=== PATIENT | female | born 1960 | race Caucasian/White ===

== ENCOUNTER 2017-05-16 10:31 | Emergency (ER) | payer OTHER ==
[~2017-05-16] VITALS: Ht 157.5 cm; Wt 55.5 kg
[~2017-05-16 10:31] MED LIST: CALC500T12 PO; FERR325C PO; HYDR-3498 PO; MELO-110 PO; NAPR-688 PO; ONDA4TAB35 PO
[2017-05-16 10:37] VITALS: Ht 157.5 cm; Wt 55.5 kg
[2017-05-16 11:21] LABS: URINE BLOOD (Dip) POC 3+ (NEGATIVE)
[2017-05-16] MEDS ORDERED: SOD CHLORIDE 0.9% 500 ML IV STA (11:46)
[2017-05-16] MEDS ORDERED: CHOL100062 PO (12:02)
[2017-05-16 12:19] LABS: ADD SCAN DIFF NO
[2017-05-16 12:24] LABS: BASOPHILS % 0.3 % (0.0-2.0); EOSINOPHILS # 0.2 10^3/ul (0.0-0.5); EOSINOPHILS % 2.1 % (0.0-7.0); HEMOGLOBIN 7.5 g/dl (12.0-16.0); LYMPHOCYTES # 1.3 10^3/ul (0.8-2.9); MEAN CORPUSCULAR HEMOGLOBIN 29.4 pg (29.0-33.0); MEAN CORPUSCULAR HGB CONC 31.3 g/dl (32.0-37.0); MEAN CORPUSCULAR VOLUME 94.1 fl (82.0-101.0); MEAN PLATELET VOLUME 9.7 fl (7.4-10.4); MONOCYTE # 0.8 10^3/ul (0.3-0.9); MONOCYTES % 11.7 % (0.0-11.0); NEUTROPHIL # 4.8 10^3/ul (1.6-7.5); NEUTROPHILS % 67.6 % (39.0-77.0); PLATELET COUNT 461 10^3/UL (140-415); RED BLOOD COUNT 2.55 10^6/ul (4.20-5.40); RED CELL DISTRIBUTION WIDTH 14.6 % (11.5-14.5); WHITE BLOOD COUNT 7.1 10^3/ul (4.8-10.8)
[2017-05-16 12:39] LABS: ALBUMIN 4.1 g/dl (3.3-4.9); ALBUMIN/GLOBULIN RATIO 1.64; CALCIUM 8.5 mg/dl (8.4-10.2); CREATININE 1.18 mg/dl (0.44-1.00); POTASSIUM 3.9 mmol/L (3.5-5.1); TOTAL PROTEIN 6.6 g/dl (6.1-8.1)
--- NOTE | 2017-05-16 12:54 | RADRPT ---
PROCEDURE: CT Abdomen and Pelvis without contrast CLINICAL INDICATION: Abdominal pain TECHNIQUE: Transaxial images were obtained through the abdomen and pelvis on a multi-slice scanner without the intravenous contrast administration. No oral contrast had previously been given. Sagit kristopher and coronal re-formations were subsequently reconstructed. One or more of the following dose reduction techniques were used: - Automated exposure control. - Adjustment of the mA and/or kV according to patient size. - Use of iterative reconstruction technique. Radiation dose: CTDIvol = 5.62 mGy; DLP = 296.28 mGy-cm. COMPARISON: 04/18/2016 FINDINGS: Lung bases: The visualized lung bases appear unremarkable. There is a small fat containing Bochdalek hernia on the left, unchanged. Liver: The liver is normal in size. A 2.8 x 1.8 cm cyst is seen within the anterior left lobe. No o ther focal lesion is evident. Gallbladder: The wall is not thickened. No radiopaque stones are identified. Bile ducts: The intra and extrahepatic bile ducts are normal in caliber. Pancreas: Appears normal with no mass or inflammation evident. Spleen: Normal in size with no focal lesion. Adrenals: Normal with no mass identified. Kidneys, ureters and bladder: A 7 mm angiomyolipoma is seen within the superior pole of the right ki dney. There is no right-sided hydronephrosis and the right ureter appears normal. The left kidney appears unremarkable except for mild to moderate hydronephrosis. The right ureter is dilated to the point of 5 mm distal left ureterolith located approximate 2-3 cm superior to the left ureterovesicu lar junction. The bladder is poorly distended. Reproductive organs: A 1.5 cm exophytic fibroid is again seen extend anteriorly off the uterine fund us. Phleboliths are seen in the right pelvis. Stomach and bowel: There is a small hiatal hernia. Substantial stool is again seen in the right col on and there is less stranding in the adjacent fat adjacent to the stool distended cecum. There is no longer distension of distal small bowel. Appendix: The vermiform appendix is not discretely identified.. Peritoneum: No free intraperitoneal fluid or air is identified. Aorta: There is atherosclerotic vascular calcification but no abdominal aortic aneurysm is evident. IVC: Unremarkable. Lymph nodes: No pathologically enlarged nodes are identified. Osseous structures: There is an end-stage degenerative left hip. Mild degenerative changes seen abo ut the right hip and within the spine. IMPRESSION: 1. Since the previous CT of 04/18/2016, the left-sided nephrolith has migrated into the distal left ureter approximately 2-3 cm superior to the UVJ resulting in mild to moderate left hydronephrosis/h ydroureter. 2. The right kidney and ureter are unremarkable except for a 7 mm angiomyolipoma located within the superior pole right kidney, unchanged. 3. Small hiatal hernia, unchanged. Abundant stool is again seen in the right colon and there is le ss stranding in the fat adjacent to the stool distended cecum. The distal small bowel is no longer distended. 4. There is no longer free intraperitoneal fluid and no free air is evident. 5. A 2.8 x 1.8 cm cyst is again seen within the left lobe of the liver. 6. A 1.5 cm uterine fibroid is again seen extending exophytically off the midline uterine fundus an teriorly. 7. A small fat containing Bochdalek hernia is again seen on the left. Physician mAee Date Time Electronically viewed and signed by Physician Amee on 05/16/2017 12:53 /
[2017-05-16] MEDS ORDERED: IBUP800T25 PO (13:29)
[2017-05-16] MEDS ORDERED: ONDA4TAB14 PO (13:29)
[2017-05-16] MEDS ORDERED: CEPH-443 PO (13:29)
[2017-05-16] MEDS ORDERED: HYDR-902 PO (13:29)
[2017-05-16] MEDS ORDERED: TAMS-14 PO (13:29)
--- NOTE | 2017-05-16 13:37 | ERD ---
ER Documentation Chief Complaint Date/Time DATE: 05/16/17 TIME: 13:33 Chief Complaint Complains of abdominal x 2 days HPI 57-year-old female. Patient presents with 2 days of abdominal pain that seems to be suprapubic associated with mild dysuria and frequency. No back pain or flank pain no fevers or chills no chest pain or shortness of breath, no abdominal surgical history. Symptoms are moderate. ROS All systems reviewed and are negative except as per history of present illness. Medications Home Meds Active Scripts Cephalexin* (Keflex*) 500 Mg Capsule, 500 MG PO BID for 7 Days, CAP Prov:BALJINDER ACKERMAN MD 05/16/17 Ibuprofen* (Motrin*) 800 Mg Tab, 800 MG PO Q6H Y for PAIN AND OR ELEVATED TEMP, #30 TAB Prov:BALJINDER ACKERMAN MD 05/16/17 Ondansetron (Ondansetron Odt) 4 Mg Tab.rapdis, 4 MG PO Q6H Y for NAUSEA AND/OR VOMITING, #10 TAB Prov:BALJINDER ACKERMAN MD 05/16/17 Hydrocodone/Acetaminophen (Eddy 10-325 Tablet) 1 Each Tablet, 1 TAB PO Q6H Y for PAIN, #7 TAB Prov:BALJINDER ACKERMAN MD 05/16/17 Tamsulosin Hcl* (Flomax*) 0.4 Mg Cap.er.24h, 0.4 MG PO QPM, #14 CAP Prov:BALJINDER ACKERMAN MD 05/16/17 Reported Medications Cholecalciferol* (Vitamin D3*) 1,000 Unit Tablet, 1000 UNIT PO DAILY, TAB 05/16/17 Calcium Carbonate* (Oysco-500*) 1 Tab Tablet, 1 TAB PO DAILY, TAB 04/18/16 Ferrous Sulfate (Iron) 325 Mg Capsr, 325 MG PO DAILY 04/18/16 Meloxicam* (Mobic*) 15 Mg Tablet, 15 MG PO DAILY, #30 TAB 04/18/16 Discontinued Scripts Ondansetron Hcl* (Zofran* ODT) 4 mg -ODT Tab.disper, 4 MG PO Q6 Y for NAUSEA AND /OR VOMITING, #10 TAB Prov:VASQUEZ FARLEY DO 04/18/16 Naproxen* (Naproxen*) 500 Mg Tablet, 500 MG PO BID Y for PAIN, #20 TAB Prov:VASQUEZ FARLEY DO 04/18/16 Hydrocodone Bit-Acetaminophen* (Eddy*) 5-325 Mg Tab, 1 TAB PO Q6 Y for PAIN, # 12 TAB Prov:VASQUEZ FALREY DO 04/18/16 Allergies Allergies: Coded Allergies: No Known Allergies (Verified Allergy, Unknown, 05/16/17) PMhx/Soc History of Surgery: Yes ( X1, APPY) Anesthesia Reaction: No Hx Neurological Disorder: No Hx Respiratory Disorders: No Hx Cardiac Disorders: No Hx Psychiatric Problems: No Hx Miscellaneous Medical Probl: Yes (OSTEOARTHRITIS) Hx Alcohol Use: No Hx Substance Use: No Hx Tobacco Use: No Smoking Status: Never smoker FmHx Family History: No diabetes Physical Exam Vitals Vital Signs Date Time Temp Pulse Resp B/P Pulse Ox O2 Delivery O2 Flow Rate FiO2 05/16/17 13:28 98.0 81 20 101/58 98 05/16/17 10:37 97.1 77 20 96/57 97 Physical Exam General: Well developed, well nourished, no acute distress Head: Normocephalic, atraumatic. Eyes: Pupils equally reactive, EOM intact ENT: Moist mucous membranes Neck: Supple, no lymphadenopathy Respiratory: Lungs clear bilaterally, no distress Cardiovascular: RRR, no murmurs, rubs, or gallops Abdominal: Soft, mild suprapubic tenderness without rebound or guarding , non- distended, no peritoneal signs, no CVAT : Deferred MSK: No edema, no unilateral swelling, 5/5 strength Neurologic: Alert and oriented, moving all extremities, normal speech, no focal weakness, no cerebellar signs Skin: No rash Psych: Normal mood Result Diagram: 05/16/17 1045 05/16/17 1045 Results 24 hrs Laboratory Tests Test 05/16/17 10:45 05/16/17 11:24 White Blood Count 7.110^3/ul Red Blood Count 2.5510^6/ul Hemoglobin 7.5g/dl Hematocrit 24.0% Mean Corpuscular Volume 94.1fl Mean Corpuscular Hemoglobin 29.4pg Mean Corpuscular Hemoglobin Concent 31.3g/dl Red Cell Distribution Width 14.6% Platelet Count 90309^3/UL Mean Platelet Volume 9.7fl Neutrophils % 67.6% Lymphocytes % 18.0% Monocytes % 11.7% Eosinophils % 2.1% Basophils % 0.3% Nucleated Red Blood Cells % 0.0/100WBC Neutrophils # 4.810^3/ul Lymphocytes # 1.310^3/ul Monocytes # 0.810^3/ul Eosinophils # 0.210^3/ul Basophils # 0.010^3/ul Nucleated Red Blood Cells # 0.010^3/ul Sodium Level 140mmol/L Potassium Level 3.9mmol/L Chloride Level 107mmol/L Carbon Dioxide Level 25mmol/L Anion Gap 12 Blood Urea Nitrogen 20mg/dl Creatinine 1.18mg/dl Glucose Level 108mg/dl Calcium Level 8.5mg/dl Total Bilirubin 0.0mg/dl Direct Bilirubin 0.00mg/dl Indirect Bilirubin 0.0mg/dl Aspartate Amino Transf (AST/SGOT) 20IU/L Alanine Aminotransferase (ALT/SGPT) 32IU/L Alkaline Phosphatase 62IU/L Total Protein 6.6g/dl Albumin 4.1g/dl Globulin 2.50g/dl Albumin/Globulin Ratio 1.64 Lipase 90U/L Bedside Urine pH (LAB) 5.5 Bedside Urine Protein (LAB) 1+ Bedside Urine Glucose (UA) Negative Bedside Urine Ketones (LAB) Negative Bedside Urine Blood 3+ Bedside Urine Nitrite (LAB) Negative Bedside Urine Leukocyte Esterase (L Negative Current Medications Medications (Trade) Dose Ordered Sig/Magaly Route PRN Reason Start Time Stop Time Status Last Admin Dose Admin Sodium Chloride (NS) 500 ml @ 500 mls/hr Q1H STAT IV 05/16/17 11:46 05/16/17 12:45 DC 05/16/17 12:55 Procedures/MDM EKG, MONITORS, & DIAGNOSTIC IMAGING: CT abdomen and pelvis IMPRESSION: 1. Since the previous CT of 04/18/2016, the left-sided nephrolith has migrated into the distal left ureter approximately 2-3 cm superior to the UVJ resulting in mild to moderate left hydronephrosis/hydroureter. 2. The right kidney and ureter are unremarkable except for a 7 mm angiomyolipoma located within the superior pole right kidney, unchanged. 3. Small hiatal hernia, unchanged. Abundant stool is again seen in the right colon and there is less stranding in the fat adjacent to the stool distended cecum. The distal small bowel is no longer distended. 4. There is no longer free intraperitoneal fluid and no free air is evident. 5. A 2.8 x 1.8 cm cyst is again seen within the left lobe of the liver. 6. A 1.5 cm uterine fibroid is again seen extending exophytically off the midline uterine fundus anteriorly. 7. A small fat containing Bochdalek hernia is again seen on the left. LAB INTERPRETATION: Anemia, no UTI MEDICAL DECISION MAKING: The patient presents with abdominal pain, she does have some mild dysuria. Consider possible UTI however urine dip does not confirm this. This raises a concern for possible acute intra-abdominal process prompting CT imaging of the abdomen and pelvis. Otherwise benign exam. ER COURSE: Anemia that does not require transfusion. She does have a history of anemia. The patient does have evidence of a left UVJ stone. This is nonobstructing and the patient has controlled pain. No evidence of infection but the patient does describe some dysuria therefore Keflex will be initiated. I do not believe inpatient hospitalization is necessary. A trial of passage would be reasonable. The patient will be started on Flomax, Motrin, pain control, Keflex. Outpatient referral to urology is recommended. I kept the patient and/or family informed of laboratory and diagnostic imaging results throughout the emergency room course. DISPOSITION PLAN: We discussed follow up with the patient's primary care doctor within 24 to 48 hours as needed. We also discussed return to the emergency room for worsening symptoms or worsening condition. Outpatient referral: Urology Discharge Medications: Eddy, Zofran, Motrin, Keflex We discussed the use of narcotics including avoidance of operating heavy machinery and driving as well as its addictive properties. Departure Diagnosis: Primary Impression: Ureteral stone Additional Impression: Anemia Anemia type: unspecified type Qualified Code: D64.9 - Anemia, unspecified type Condition: Stable Patient Instructions: Kidney Stone W/ Colic Referrals: WILFREDO LEONARD MD, JENNIFER MD METZGER, CHARLES K Additional Instructions: [place] soares doctor helen titus (Referral Sources) MAANA y sue kyra ANTHOYN PARA DENTRO DE KYRA SEMANA. Dgale a la secretaria que nosotros le instruimos hacer esta anthony.Avise o llame si villatoro condicin se empeora antes de la anthony. BALJINDER ACKERMAN MD May 16, 2017 13:36
[2017-05-16 13:55] VITALS: BP 134/74; PULSE 65; RESP 20; TEMP 98.2
== END 2017-05-16 13:56 | disposition home or self-care (01) ==
LOC: E/R 10:31
DX: N20.1 Calculus of ureter (principal); D64.9 Anemia, unspecified; R40.2142 Coma scale, eyes open, spontaneous, at arrival to emergency department; R40.2252 Coma scale, best verbal response, oriented, at arrival to emergency department; R40.2362 Coma scale, best motor response, obeys commands, at arrival to emergency department
CPT/HCPCS: 74176; 80053; 81003; 83690; 85025; J7040; 36415

== ENCOUNTER 2017-05-30 10:06 | Emergency (ER) | payer OTHER ==
[~2017-05-30] VITALS: Ht 160 cm; Wt 55.5 kg
[~2017-05-30 10:06] MED LIST changes: +CEPH-443 PO; +CHOL100062 PO; -HYDR-3498 PO; +HYDR-902 PO; +IBUP800T25 PO; -NAPR-688 PO; +ONDA4TAB14 PO; -ONDA4TAB35 PO; +TAMS-14 PO
[2017-05-30 10:11] VITALS: Ht 160 cm; Wt 55.5 kg
[2017-05-30] MEDS ORDERED: IBUPROFEN 600 MG TAB PO ONE (11:00)
[2017-05-30 11:24] LABS: ADD UMIC YES; UR ASCORBIC ACID NEGATIVE (NEGATIVE); UR BILIRUBIN (Dip) NEGATIVE (NEGATIVE); UR BLOOD (Dip) 2+ mg/dL (NEGATIVE); UR CLARITY CLEAR (CLEAR); UR COLOR YELLOW (YELLOW); UR GLUCOSE (Dip) NEGATIVE (NEGATIVE); UR KETONES (Dip) NEGATIVE (NEGATIVE); UR LEUKOCYTE ESTERASE (Dip) TRACE Leu/ul (NEGATIVE); UR MUCUS FEW /HPF (NONE SEEN); UR NITRITE (Dip) NEGATIVE (NEGATIVE); UR RBC 8 /HPF (0-5); UR SPECIFIC GRAVITY (Dip) 1.024 (1.003-1.030); UR SQUAMOUS EPITHELIAL CELL FEW /HPF (FEW); UR TOTAL PROTEIN (Dip) NEGATIVE (NEGATIVE); UR UROBILINOGEN (Dip) NEGATIVE (NEGATIVE)
--- NOTE | 2017-05-30 11:30 | ERD ---
ER Documentation Chief Complaint Date/Time DATE: 05/30/17 TIME: 11:29 Chief Complaint Complains of painful urination x 3 days HPI This 57-year-old female who presents to the emergency department today complaining of some painful urination. Patient states she was here on May 16 and was told that she had a kidney stone. She states that she finished her antibiotics. States she has an appointment on the of this month with her primary care doctor. States that she still continues to have pain. Denies any fevers or chills, nausea or vomiting. ROS All systems reviewed and are negative except as per history of present illness. Medications Home Meds Active Scripts Phenazopyridine Hcl* (Pyridium*) 200 Mg Tab, 200 MG PO TID Y for URINARY PAIN, # 6 TAB Prov:ARNOL PANG PA-C 05/30/17 Ibuprofen* (Motrin*) 600 Mg Tab, 600 MG PO Q6, #30 TAB Prov:ARNOL PANG PA-C 05/30/17 Hydrocodone/Acetaminophen ([place] 5-325 Tablet) 1 Each Tablet, 1 TAB PO Q6H Y for PAIN, #10 TAB Prov:ARNOL PANG PA-C 05/30/17 Cephalexin* (Keflex*) 500 Mg Capsule, 500 MG PO BID for 7 Days, CAP Prov:BALJINDER ACKERMAN MD 05/16/17 Ibuprofen* (Motrin*) 800 Mg Tab, 800 MG PO Q6H Y for PAIN AND OR ELEVATED TEMP, #30 TAB Prov:BALJINDER ACKERMAN MD 05/16/17 Ondansetron (Ondansetron Odt) 4 Mg Tab.rapdis, 4 MG PO Q6H Y for NAUSEA AND/OR VOMITING, #10 TAB Prov:BALJINDER ACKERMAN MD 05/16/17 Hydrocodone/Acetaminophen ([place] 10-325 Tablet) 1 Each Tablet, 1 TAB PO Q6H Y for PAIN, #7 TAB Prov:BALJINDER ACKERMAN MD 05/16/17 Tamsulosin Hcl* (Flomax*) 0.4 Mg Cap.er.24h, 0.4 MG PO QPM, #14 CAP Prov:BALJINDER ACKERMAN MD 05/16/17 Reported Medications Cholecalciferol* (Vitamin D3*) 1,000 Unit Tablet, 1000 UNIT PO DAILY, TAB 05/16/17 Calcium Carbonate* (Oysco-500*) 1 Tab Tablet, 1 TAB PO DAILY, TAB 04/18/16 Ferrous Sulfate (Iron) 325 Mg Capsr, 325 MG PO DAILY 04/18/16 Meloxicam* (Mobic*) 15 Mg Tablet, 15 MG PO DAILY, #30 TAB 04/18/16 Allergies Allergies: Coded Allergies: No Known Allergies (Verified Allergy, Unknown, 05/30/17) PMhx/Soc History of Surgery: Yes ( X1, APPY) Anesthesia Reaction: No Hx Neurological Disorder: No Hx Respiratory Disorders: No Hx Cardiac Disorders: No Hx Psychiatric Problems: No Hx Miscellaneous Medical Probl: Yes (OSTEOARTHRITIS) Hx Alcohol Use: No Hx Substance Use: No Hx Tobacco Use: No Physical Exam Vitals Vital Signs Date Time Temp Pulse Resp B/P Pulse Ox O2 Delivery O2 Flow Rate FiO2 05/30/17 10:11 98.3 75 20 114/53 97 Physical Exam Const: No acute distress Head: Atraumatic Eyes: Normal Conjunctiva ENT: Normal External Ears, Nose and Mouth. Neck: Full range of motion..~ No meningismus. Resp: Clear to auscultation bilaterally Cardio: Regular rate and rhythm, no murmurs Abd: Soft, suprapubic tenderness non distended. Normal bowel sounds. No right lower quadrant pain. No left lower quadrant pain. Skin: No petechiae or rashes Back: No midline or flank tenderness. No CVA tenderness. Ext: No cyanosis, or edema Neur: Awake and alert Psych: Normal Mood and Affect Results 24 hrs Laboratory Tests Test 05/30/17 10:47 Urine Color YELLOW Urine Clarity CLEAR Urine pH 5.0 Urine Specific [place] 1.024 Urine Ketones NEGATIVEmg/dL Urine Nitrite NEGATIVEmg/dL Urine Bilirubin NEGATIVEmg/dL Urine Urobilinogen NEGATIVEmg/dL Urine Leukocyte Esterase TRACELeu/ul Urine Microscopic RBC 8/HPF Urine Microscopic WBC 6/HPF Urine Squamous Epithelial Cells FEW/HPF Urine Mucus FEW/HPF Urine Hemoglobin 2+mg/dL Urine Glucose NEGATIVEmg/dL Urine Total Protein NEGATIVEmg/dl Current Medications Medications (Trade) Dose Ordered Sig/Magaly Route PRN Reason Start Time Stop Time Status Last Admin Dose Admin Ibuprofen (Motrin) 600 mg ONCE ONCE PO 7/13/17 11:00 05/30/17 11:01 DC 05/30/17 10:56 Procedures/MDM This 57-year-old female who presents the emergency department today for some persistent abdominal pain and pain with urination that has been ongoing since May 16. Patient was seen here in the emergency department at that time and had a complete workup in which a CT scan showed a left UVJ stone. Patient was discharged home on Keflex, Zofran Motrin and Flomax. Patient complains of the same pain today. I did repeat a UA UA shows trace leukocyte esterase however negative nitrates. Very mildly elevated white blood cells very mildly elevated red blood cells. I do not feel the patient needs to be treated for urinary tract infection at this time given that she is ready finished a course of Keflex. Low suspicion for pyelonephritis. She is afebrile and otherwise well-appearing. She has no CVA tenderness. Patient's pain may be related to the UVJ stone. I have explained this to the patient. I do not feel the patient requires repeat CT scan. She has no right lower quadrant pain and a left lower quadrant pain. I have low suspicion for acute surgical abdomen. I will give the patient a prescription for Pyridium and some more pain medication. I have explained her that she needs referral to a urologist. I have given her a list of referral information. Patient was given Motrin here in the emergency department. At this time the patient is stable for discharge and outpatient management. Patient should follow up with their PCP in the next 1-2 days. They may return to the emergency department sooner for any persistent or worsening of symptoms. Patient understood and agreed with the plan. Discussed the patient with Dr. Barth and he is in agreement with the plan. Departure Diagnosis: Primary Impression: Dysuria Condition: ARNOL Santamaria PA-C May 30, 2017 11:30
[2017-05-30] MEDS ORDERED: HYDR-906 PO (11:38)
[2017-05-30] MEDS ORDERED: IBUP-1542 PO (11:38)
[2017-05-30] MEDS ORDERED: PHEN-538 PO (11:40)
== END 2017-05-30 11:51 | disposition home or self-care (01) ==
LOC: FTE 10:06
DX: R30.0 Dysuria (principal)
CPT/HCPCS: 81001; 87086; Z7502; Z7610; 99283

== ENCOUNTER 2017-06-20 10:11 | Emergency (ER) | payer OTHER ==
[~2017-06-20] VITALS: Ht 160 cm; Wt 55.5 kg
[~2017-06-20 10:11] MED LIST changes: +HYDR-906 PO; +IBUP-1542 PO; +PHEN-538 PO
[2017-06-20 10:17] VITALS: Ht 160 cm; Wt 55.5 kg
[2017-06-20] MEDS ORDERED: SOD CHLORIDE 0.9% 1,000 ML IV STA (10:32)
[2017-06-20] MEDS ORDERED: KETOROLAC 15 MG INJ IV STA (10:32)
--- NOTE | 2017-06-20 10:37 | ERA ---
ER Documentation Chief Complaint Date/Time DATE: 06/20/17 TIME: 10:34 Chief Complaint 8 abd pain x 2 days HPI This is a 57-year-old female with a chief complaint of right lower quadrant abdominal pain 2 days. Past surgical history includes appendectomy during childhood and section more than 20 years ago. Denies nausea, vomiting , diarrhea, fever, chills, constipation, identifiable triggers, or association with food. No symptoms like this in the past. No smoking or alcohol use. No other complaints. ROS All systems reviewed and are negative except as per history of present illness. Medications Home Meds Active Scripts Nitrofurantoin Monohyd Macrocr* (Macrobid*) 100 Mg Capsr, 100 MG PO HS for 7 Days, CAP Prov:KEYON GOODEN PA-C 06/20/17 Phenazopyridine Hcl* (Pyridium*) 200 Mg Tab, 200 MG PO TID Y for URINARY PAIN, # 6 TAB Prov:ARNOL PANG PA-C 05/30/17 Ibuprofen* (Motrin*) 600 Mg Tab, 600 MG PO Q6, #30 TAB Prov:ARNOL PANG PA-C 05/30/17 Hydrocodone/Acetaminophen ([place] 5-325 Tablet) 1 Each Tablet, 1 TAB PO Q6H Y for PAIN, #10 TAB Prov:ARNOL PANG PA-C 05/30/17 Cephalexin* (Keflex*) 500 Mg Capsule, 500 MG PO BID for 7 Days, CAP Prov:BALJINDER ACKERMAN MD 05/16/17 Ibuprofen* (Motrin*) 800 Mg Tab, 800 MG PO Q6H Y for PAIN AND OR ELEVATED TEMP, #30 TAB Prov:BALJINDER ACKERMAN MD 05/16/17 Ondansetron (Ondansetron Odt) 4 Mg Tab.rapdis, 4 MG PO Q6H Y for NAUSEA AND/OR VOMITING, #10 TAB Prov:BALJINDER ACKERMAN MD 05/16/17 Hydrocodone/Acetaminophen ([place] 10-325 Tablet) 1 Each Tablet, 1 TAB PO Q6H Y for PAIN, #7 TAB Prov:BALJINDER ACKERMAN MD 05/16/17 Tamsulosin Hcl* (Flomax*) 0.4 Mg Cap.er.24h, 0.4 MG PO QPM, #14 CAP Prov:BALJINDER ACKERMAN MD 05/16/17 Reported Medications Cholecalciferol* (Vitamin D3*) 1,000 Unit Tablet, 1000 UNIT PO DAILY, TAB 05/16/17 Calcium Carbonate* (Oysco-500*) 1 Tab Tablet, 1 TAB PO DAILY, TAB 04/18/16 Ferrous Sulfate (Iron) 325 Mg Capsr, 325 MG PO DAILY 04/18/16 Meloxicam* (Mobic*) 15 Mg Tablet, 15 MG PO DAILY, #30 TAB 04/18/16 Allergies Allergies: Coded Allergies: No Known Allergies (Verified Allergy, Unknown, 06/20/17) PMhx/Soc History of Surgery: Yes ( X1, APPY) Anesthesia Reaction: No Hx Neurological Disorder: No Hx Respiratory Disorders: No Hx Cardiac Disorders: No Hx Psychiatric Problems: No Hx Miscellaneous Medical Probl: Yes (OSTEOARTHRITIS) Hx Alcohol Use: No Hx Substance Use: No Hx Tobacco Use: No Physical Exam Vitals Vital Signs Date Time Temp Pulse Resp B/P Pulse Ox O2 Delivery O2 Flow Rate FiO2 06/20/17 10:17 98.3 66 17 110/58 97 Physical Exam Const: Well-appearing 57-year-old female no acute distress Head: Atraumatic Eyes: Normal Conjunctiva ENT: Normal External Ears, Nose and Mouth. Neck: Full range of motion..~ No meningismus. Resp: Clear to auscultation bilaterally Cardio: Regular rate and rhythm, no murmurs Abd: Mild right lower quadrant tenderness. Soft, non distended. Normal bowel sounds Skin: No petechiae or rashes Back: No midline or flank tenderness Ext: No cyanosis, or edema Neur: Awake and alert Psych: Normal Mood and Affect : No adnexall tenderness or mass palpated. Mild suprapubic tenderness. Result Diagram: 06/20/17 1050 06/20/17 1050 Results 24 hrs Laboratory Tests Test 06/20/17 10:50 06/20/17 13:16 White Blood Count 6.910^3/ul Red Blood Count 2.9910^6/ul Hemoglobin 8.7g/dl Hematocrit 27.7% Mean Corpuscular Volume 92.6fl Mean Corpuscular Hemoglobin 29.1pg Mean Corpuscular Hemoglobin Concent 31.4g/dl Red Cell Distribution Width 14.6% Platelet Count 78980^3/UL Mean Platelet Volume 9.4fl Neutrophils % 64.6% Lymphocytes % 24.0% Monocytes % 8.5% Eosinophils % 2.5% Basophils % 0.1% Nucleated Red Blood Cells % 0.0/100WBC Neutrophils # 4.510^3/ul Lymphocytes # 1.710^3/ul Monocytes # 0.610^3/ul Eosinophils # 0.210^3/ul Basophils # 0.010^3/ul Nucleated Red Blood Cells # 0.010^3/ul Sodium Level 142mmol/L Potassium Level 4.2mmol/L Chloride Level 104mmol/L Carbon Dioxide Level 26mmol/L Anion Gap 16 Blood Urea Nitrogen 15mg/dl Creatinine 0.85mg/dl Glucose Level 90mg/dl Calcium Level 8.7mg/dl Total Bilirubin 0.0mg/dl Direct Bilirubin 0.00mg/dl Indirect Bilirubin 0.0mg/dl Aspartate Amino Transf (AST/SGOT) 20IU/L Alanine Aminotransferase (ALT/SGPT) 24IU/L Alkaline Phosphatase 61IU/L Total Protein 7.2g/dl Albumin 4.0g/dl Globulin 3.20g/dl Albumin/Globulin Ratio 1.25 Lipase 88U/L Bedside Urine pH (LAB) 5.5 Bedside Urine Protein (LAB) Negative Bedside Urine Glucose (UA) Negative Bedside Urine Ketones (LAB) Negative Bedside Urine Blood 1+ Bedside Urine Nitrite (LAB) Negative Bedside Urine Leukocyte Esterase (L Trace Current Medications Medications (Trade) Dose Ordered Sig/Magaly Route PRN Reason Start Time Stop Time Status Last Admin Dose Admin Sodium Chloride (NS) 1,000 ml @ 1,000 mls/hr Q1H STAT IV 06/20/17 10:32 06/20/17 11:31 DC 06/20/17 10:50 Ketorolac Tromethamine (Toradol) 15 mg ONCE STAT IV 06/20/17 10:32 06/20/17 10:35 DC 06/20/17 10:51 Procedures/MDM 57-year-old female presenting with right lower quadrant abdominal pain as described in history and physical examination. CBC, CMP, lipase and urinalysis was ordered. Patient was given 1 L of saline and 15 mg of Toradol IV with adequate relief of symptoms. Patient's labs were unremarkable. Urinalysis showed hematuria and trace leukocyte esterase. At this time most likely diagnosis is nephrolithiasis versus hemorrhagic cystitis. Patient will be treated with antibiotics to cover possible infection and has been educated on urinary stone prevention. I have little suspicion for obstructive and/or infectious pathologies. At this time I am unable to rule out more chronic conditions thus I have recommended that the patient follow-up with PCP in the next 2-3 days for further evaluation and possible referral to a specialist. Vitals are stable and current condition is appropriate for discharge. Will be given discharge instructions with return precautions. Departure Diagnosis: Primary Impression: UTI (urinary tract infection) Qualified Code: N30.01 - Acute cystitis with hematuria Additional Impressions: Abdominal pain Qualified Code: R10.9 - Abdominal pain, unspecified location Nephrolithiasis Condition: Stable Additional Instructions: Follow up with your PCP within the next 1-3 days for a more thorough evaluation and a possible referral to a specialist. Return the the emergency department immediately if symptoms worsen or change. If you have any questions regarding medications, ask your pharmacist or us before you leave. If any adverse reactions occur while taking your medications, discontinue the treatment and return to the emergency department immediately. Take your medications as directed, and complete the entire course of treatment. KEYON GOODEN PA-C Jun 20, 2017 10:36
[2017-06-20 11:04] LABS: BASOPHILS % 0.1 % (0.0-2.0); EOSINOPHILS # 0.2 10^3/ul (0.0-0.5); EOSINOPHILS % 2.5 % (0.0-7.0); HEMATOCRIT 27.7 % (37.0-47.0); HEMOGLOBIN 8.7 g/dl (12.0-16.0); LYMPHOCYTES # 1.7 10^3/ul (0.8-2.9); MEAN CORPUSCULAR HEMOGLOBIN 29.1 pg (29.0-33.0); MEAN CORPUSCULAR HGB CONC 31.4 g/dl (32.0-37.0); MEAN CORPUSCULAR VOLUME 92.6 fl (82.0-101.0); MEAN PLATELET VOLUME 9.4 fl (7.4-10.4); MONOCYTE # 0.6 10^3/ul (0.3-0.9); MONOCYTES % 8.5 % (0.0-11.0); NEUTROPHIL # 4.5 10^3/ul (1.6-7.5); NEUTROPHILS % 64.6 % (39.0-77.0); PLATELET COUNT 386 10^3/UL (140-415); RED BLOOD COUNT 2.99 10^6/ul (4.20-5.40); RED CELL DISTRIBUTION WIDTH 14.6 % (11.5-14.5); WHITE BLOOD COUNT 6.9 10^3/ul (4.8-10.8)
[2017-06-20 11:16] LABS: ALBUMIN/GLOBULIN RATIO 1.25; CALCIUM 8.7 mg/dl (8.4-10.2); CREATININE 0.85 mg/dl (0.44-1.00); POTASSIUM 4.2 mmol/L (3.5-5.1); TOTAL PROTEIN 7.2 g/dl (6.1-8.1)
[2017-06-20 13:10] LABS: URINE BLOOD (Dip) POC 1+ (NEGATIVE)
[2017-06-20] MEDS ORDERED: NITR-58 PO (13:43)
[2017-06-20 13:50] LABS: ADD UMIC YES; UR ASCORBIC ACID NEGATIVE (NEGATIVE); UR BILIRUBIN (Dip) NEGATIVE (NEGATIVE); UR BLOOD (Dip) 1+ mg/dL (NEGATIVE); UR CLARITY CLEAR (CLEAR); UR COLOR YELLOW (YELLOW); UR GLUCOSE (Dip) NEGATIVE (NEGATIVE); UR KETONES (Dip) NEGATIVE (NEGATIVE); UR LEUKOCYTE ESTERASE (Dip) TRACE Leu/ul (NEGATIVE); UR NITRITE (Dip) NEGATIVE (NEGATIVE); UR RBC 1 /HPF (0-5); UR SPECIFIC GRAVITY (Dip) 1.015 (1.003-1.030); UR TOTAL PROTEIN (Dip) NEGATIVE (NEGATIVE); UR UROBILINOGEN (Dip) NEGATIVE (NEGATIVE)
[2017-06-20 13:53] VITALS: BP 129/74; PULSE 63; RESP 18; TEMP 98.2
== END 2017-06-20 13:54 | disposition home or self-care (01) ==
LOC: FTE 10:11
DX: N30.01 Acute cystitis with hematuria (principal); N20.0 Calculus of kidney
CPT/HCPCS: 36415; 80053; 81001; 83690; 85025; 96374; J1885; J7030; Z7502; 81003

== ENCOUNTER 2017-07-09 10:30 | Emergency (ER) | payer OTHER ==
[~2017-07-09] VITALS: Ht 157.5 cm; Wt 80.0 kg
[~2017-07-09 10:30] MED LIST changes: +NITR-58 PO
[2017-07-09 10:37] VITALS: Ht 157.5 cm; Wt 80.0 kg
[2017-07-09] MEDS ORDERED: ONDANSETRON 4 MG INJ IV STA (11:03)
[2017-07-09] MEDS ORDERED: SOD CHLORIDE 0.9% 500 ML IV STA (11:03)
[2017-07-09] MEDS ORDERED: FAMOTIDINE 20 MG INJ IV STA (11:03)
[2017-07-09] MEDS ORDERED: ONDANSETRON (ODT) 4 MG TAB ODT STA (11:37)
[2017-07-09 12:00] LABS: ADD UMIC YES; UR ASCORBIC ACID NEGATIVE (NEGATIVE); UR BACTERIA FEW /HPF (NONE SEEN); UR BILIRUBIN (Dip) 1+ mg/dL (NEGATIVE); UR BLOOD (Dip) 1+ mg/dL (NEGATIVE); UR CLARITY SLIGHTLY CLOUDY (CLEAR); UR COLOR AMBER (YELLOW); UR GLUCOSE (Dip) NEGATIVE (NEGATIVE); UR KETONES (Dip) TRACE mg/dL (NEGATIVE); UR LEUKOCYTE ESTERASE (Dip) TRACE Leu/ul (NEGATIVE); UR MUCUS MODERATE /HPF (NONE SEEN); UR NITRITE (Dip) NEGATIVE (NEGATIVE); UR RBC 29 /HPF (0-5); UR SPECIFIC GRAVITY (Dip) 1.033 (1.003-1.030); UR SQUAMOUS EPITHELIAL CELL FEW /HPF (FEW); UR TOTAL PROTEIN (Dip) 1+ mg/dl (NEGATIVE); UR UROBILINOGEN (Dip) NEGATIVE (NEGATIVE)
[2017-07-09] MEDS ORDERED: HYDROCODONE/APAP (5/325) TAB PO ONE (12:00)
[2017-07-09 12:06] LABS: BASOPHILS % 0.1 % (0.0-2.0); EOSINOPHILS # 0.1 10^3/ul (0.0-0.5); EOSINOPHILS % 1.8 % (0.0-7.0); HEMATOCRIT 26.7 % (37.0-47.0); HEMOGLOBIN 8.6 g/dl (12.0-16.0); LYMPHOCYTES # 1.3 10^3/ul (0.8-2.9); LYMPHOCYTES % 19.4 % (15.0-51.0); MEAN CORPUSCULAR HGB CONC 32.2 g/dl (32.0-37.0); MEAN PLATELET VOLUME 9.3 fl (7.4-10.4); MONOCYTE # 0.9 10^3/ul (0.3-0.9); MONOCYTES % 12.6 % (0.0-11.0); NEUTROPHILS % 65.7 % (39.0-77.0); PLATELET COUNT 405 10^3/UL (140-415); RED BLOOD COUNT 2.87 10^6/ul (4.20-5.40); RED CELL DISTRIBUTION WIDTH 14.5 % (11.5-14.5); WHITE BLOOD COUNT 6.7 10^3/ul (4.8-10.8)
[2017-07-09 12:26] LABS: ALBUMIN/GLOBULIN RATIO 1.2
[2017-07-09 12:34] LABS: ALBUMIN 3.6 g/dl (3.3-4.9); CALCIUM 8.7 mg/dl (8.4-10.2); CREATININE 0.73 mg/dl (0.44-1.00); TOTAL PROTEIN 6.6 g/dl (6.1-8.1)
--- NOTE | 2017-07-09 12:40 | ERD ---
ER Documentation Chief Complaint Date/Time DATE: 07/09/17 TIME: 12:38 Chief Complaint ap with nausea since last night HPI There is 57-year-old female presents to the emergency room for evaluation of abdominal pain, nausea, and frequent urination for the past 48 hours. She states that she has had previous urinary tract infections and this does feel similar to her previous infections. The patient came to the ER today for evaluation. She denies any fevers and localizes the pain to the lower portion of the abdomen. ROS All systems reviewed and are negative except as per history of present illness. Medications Home Meds Active Scripts Nitrofurantoin Monohyd Macrocr* (Macrobid*) 100 Mg Capsr, 100 MG PO HS for 7 Days, CAP Prov:KEYON GOODEN PA-C 06/20/17 Phenazopyridine Hcl* (Pyridium*) 200 Mg Tab, 200 MG PO TID Y for URINARY PAIN, # 6 TAB Prov:ARNOL PANG PA-C 05/30/17 Ibuprofen* (Motrin*) 600 Mg Tab, 600 MG PO Q6, #30 TAB Prov:ARNOL PANG PA-C 05/30/17 Hydrocodone/Acetaminophen ([place] 5-325 Tablet) 1 Each Tablet, 1 TAB PO Q6H Y for PAIN, #10 TAB Prov:ARNOL PANG PA-C 05/30/17 Cephalexin* (Keflex*) 500 Mg Capsule, 500 MG PO BID for 7 Days, CAP Prov:BALJINDER ACKERMAN MD 05/16/17 Ibuprofen* (Motrin*) 800 Mg Tab, 800 MG PO Q6H Y for PAIN AND OR ELEVATED TEMP, #30 TAB Prov:BALJINDER ACKERMAN MD 05/16/17 Ondansetron (Ondansetron Odt) 4 Mg Tab.rapdis, 4 MG PO Q6H Y for NAUSEA AND/OR VOMITING, #10 TAB Prov:BALJINDER ACKERMAN MD 05/16/17 Hydrocodone/Acetaminophen ([place] 10-325 Tablet) 1 Each Tablet, 1 TAB PO Q6H Y for PAIN, #7 TAB Prov:BALJINDER ACKERMAN MD 05/16/17 Tamsulosin Hcl* (Flomax*) 0.4 Mg Cap.er.24h, 0.4 MG PO QPM, #14 CAP Prov:BALJINDER ACKERMAN MD 05/16/17 Reported Medications Cholecalciferol* (Vitamin D3*) 1,000 Unit Tablet, 1000 UNIT PO DAILY, TAB 05/16/17 Calcium Carbonate* (Oysco-500*) 1 Tab Tablet, 1 TAB PO DAILY, TAB 04/18/16 Ferrous Sulfate (Iron) 325 Mg Capsr, 325 MG PO DAILY 04/18/16 Meloxicam* (Mobic*) 15 Mg Tablet, 15 MG PO DAILY, #30 TAB 04/18/16 Allergies Allergies: Coded Allergies: No Known Allergies (Verified Allergy, Unknown, 06/20/17) PMhx/Soc History of Surgery: Yes ( X1, APPY) Anesthesia Reaction: No Hx Neurological Disorder: No Hx Respiratory Disorders: No Hx Cardiac Disorders: No Hx Psychiatric Problems: No Hx Miscellaneous Medical Probl: Yes (OSTEOARTHRITIS) Hx Alcohol Use: No Hx Substance Use: No Hx Tobacco Use: No Smoking Status: Never smoker Physical Exam Vitals Vital Signs Date Time Temp Pulse Resp B/P Pulse Ox O2 Delivery O2 Flow Rate FiO2 07/09/17 10:37 98.1 84 18 104/62 99 Physical Exam Const: No acute distress Head: Atraumatic Eyes: Normal Conjunctiva ENT: Normal External Ears, Nose and Mouth. Neck: Full range of motion..~ No meningismus. Resp: Clear to auscultation bilaterally Cardio: Regular rate and rhythm, no murmurs Abd: Suprapubic tenderness to palpation, otherwise, negative McBurney point tenderness, soft, non tender, non distended. Normal bowel sounds Skin: No petechiae or rashes Back: No midline or flank tenderness Ext: No cyanosis, or edema Neur: Awake and alert Psych: Normal Mood and Affect Result Diagram: 07/09/17 1155 07/09/17 1155 Results 24 hrs Laboratory Tests Test 07/09/17 10:30 07/09/17 11:55 Urine Color BRIAN Urine Clarity SLIGHTLY CLOUDY Urine pH 5.0 Urine Specific [place] 1.033 Urine Ketones TRACEmg/dL Urine Nitrite NEGATIVEmg/dL Urine Bilirubin 1+mg/dL Urine Urobilinogen NEGATIVEmg/dL Urine Leukocyte Esterase TRACELeu/ul Urine Microscopic RBC 29/HPF Urine Microscopic WBC 5/HPF Urine Squamous Epithelial Cells FEW/HPF Urine Calcium Oxalate Crystals FEW/HPF Urine Bacteria FEW/HPF Urine Mucus MODERATE/HPF Urine Hemoglobin 1+mg/dL Urine Glucose NEGATIVEmg/dL Urine Total Protein 1+mg/dl White Blood Count 6.710^3/ul Red Blood Count 2.8710^6/ul Hemoglobin 8.6g/dl Hematocrit 26.7% Mean Corpuscular Volume 93.0fl Mean Corpuscular Hemoglobin 30.0pg Mean Corpuscular Hemoglobin Concent 32.2g/dl Red Cell Distribution Width 14.5% Platelet Count 17393^3/UL Mean Platelet Volume 9.3fl Neutrophils % 65.7% Lymphocytes % 19.4% Monocytes % 12.6% Eosinophils % 1.8% Basophils % 0.1% Nucleated Red Blood Cells % 0.0/100WBC Neutrophils # (Manual) 410^3/ul Lymphocytes # 1.310^3/ul Monocytes # 0.910^3/ul Eosinophils # 0.110^3/ul Basophils # 0.010^3/ul Nucleated Red Blood Cells # 0.010^3/ul Sodium Level 141mmol/L Potassium Level 4.0mmol/L Chloride Level 103mmol/L Carbon Dioxide Level 26mmol/L Anion Gap 16 Blood Urea Nitrogen 18mg/dl Creatinine 0.73mg/dl Glucose Level 101mg/dl Calcium Level 8.7mg/dl Total Bilirubin 0.0mg/dl Direct Bilirubin 0.00mg/dl Indirect Bilirubin 0.0mg/dl Aspartate Amino Transf (AST/SGOT) 15IU/L Alanine Aminotransferase (ALT/SGPT) 25IU/L Alkaline Phosphatase 61IU/L Total Protein 6.6g/dl Albumin 3.6g/dl Globulin 3.00g/dl Albumin/Globulin Ratio 1.20 Lipase 74U/L Current Medications Medications (Trade) Dose Ordered Sig/Magaly Route PRN Reason Start Time Stop Time Status Last Admin Dose Admin Sodium Chloride (NS) 500 ml @ 500 mls/hr Q1H STAT IV 07/09/17 11:03 07/09/17 11:39 DC Ondansetron HCl (Zofran Inj) 4 mg ONCE STAT IV 07/09/17 11:03 07/09/17 11:39 DC Famotidine (Pepcid Iv) 20 mg ONCE STAT IV 07/09/17 11:03 07/09/17 11:39 DC Ondansetron HCl (Zofran Odt) 4 mg ONCE STAT ODT 07/09/17 11:37 07/09/17 11:38 DC 07/09/17 12:04 Acetaminophen/ Hydrocodone Bitart ([place] (5/325)) 1 tab ONCE ONCE PO 07/09/17 12:00 07/09/17 12:01 DC 07/09/17 12:04 Procedures/MDM This 57-year-old female presents to the ER for evaluation of lower abdominal pain. When I evaluated this patient she had suprapubic tenderness to palpation. The patient was in the emergency room approximately 2 weeks ago was diagnosed with urinary tract infection discharged home with Keflex. This patient's previous urine culture results show sensitivity to ciprofloxacin. She has no signs of fever chills or pyelonephritis at this time. Her hemoglobin is at her baseline. The patient will be discharged at this time with a prescription for ciprofloxacin, and [place] for breakthrough pain. Departure Diagnosis: Primary Impression: Acute cystitis Condition: Stable HAN NIETO DO Jul 09, 2017 12:40
[2017-07-09] MEDS ORDERED: CIPR500T4 PO (12:41)
[2017-07-09] MEDS ORDERED: HYDR-906 PO (12:41)
== END 2017-07-09 12:50 | disposition home or self-care (01) ==
LOC: E/R 10:30
DX: N30.00 Acute cystitis without hematuria (principal); R11.0 Nausea
CPT/HCPCS: 80053; 81001; 83690; 85025; Z7502; Z7610; 99284; J7040

== ENCOUNTER 2017-07-15 15:19 | Inpatient (IN) | payer OTHER ==
[~2017-07-15] VITALS: Ht 160 cm; Wt 55.0 kg
[~2017-07-15 15:19] MED LIST changes: +CIPR500T4 PO
[2017-07-15 15:23] VITALS: Ht 160 cm; Wt 55.0 kg
[2017-07-15] MEDS ORDERED: ONDANSETRON (ODT) 4 MG TAB ODT STA (19:17)
[2017-07-15] MEDS ORDERED: HYDROCODONE/APAP (5/325) TAB PO STA (19:17)
--- NOTE | 2017-07-15 19:22 | ERD ---
ER Documentation Chief Complaint Date/Time DATE: 07/15/17 TIME: 19:20 Chief Complaint EPIGASTRIC PAIN WITH NAUSEA AND VOMITING HPI This is a 57-year-old female presents to the emergency department complaining of dysuria since today. Patient states that she also has epigastric pain, rating it moderate in severity stating that she had one episode of vomiting. She admits to having nausea. Denies any fever, diarrhea. She denies taking any medications for this. Denies any relevant medical problems. Patient states that about 1 week prior to being seen she was seen by her primary care physician and was given Cipro for a urinary tract infection. She states that she continues to have symptoms. Last colonoscopy was 5 years prior to being seen in normal. ROS All systems reviewed and are negative except as per history of present illness. Medications Home Meds Active Scripts Hydrocodone/Acetaminophen ([place] 5-325 Tablet) 1 Each Tablet, 1 TAB PO Q6H Y for PAIN, #7 TAB Prov:HAN NIETO DO 07/09/17 Ciprofloxacin Hcl* (Ciprofloxacin Hcl*) 500 Mg Tablet, 500 MG PO BID for 14 Days , TAB Prov:HAN NIETO DO 07/09/17 Nitrofurantoin Monohyd Macrocr* (Macrobid*) 100 Mg Capsr, 100 MG PO HS for 7 Days, CAP Prov:KEYON GOODEN PA-C 06/20/17 Phenazopyridine Hcl* (Pyridium*) 200 Mg Tab, 200 MG PO TID Y for URINARY PAIN, # 6 TAB Prov:ARNOL PANG PA-C 05/30/17 Ibuprofen* (Motrin*) 600 Mg Tab, 600 MG PO Q6, #30 TAB Prov:ARNOL PANG PA-C 05/30/17 Hydrocodone/Acetaminophen ([place] 5-325 Tablet) 1 Each Tablet, 1 TAB PO Q6H Y for PAIN, #10 TAB Prov:ARNOL PANG PA-C 05/30/17 Cephalexin* (Keflex*) 500 Mg Capsule, 500 MG PO BID for 7 Days, CAP Prov:BALJINDER ACKERMAN MD 05/16/17 Ibuprofen* (Motrin*) 800 Mg Tab, 800 MG PO Q6H Y for PAIN AND OR ELEVATED TEMP, #30 TAB Prov:BALJINDER ACKERMAN MD 05/16/17 Ondansetron (Ondansetron Odt) 4 Mg Tab.rapdis, 4 MG PO Q6H Y for NAUSEA AND/OR VOMITING, #10 TAB Prov:BALJINDER ACKERMAN MD 05/16/17 Hydrocodone/Acetaminophen ([place] 10-325 Tablet) 1 Each Tablet, 1 TAB PO Q6H Y for PAIN, #7 TAB Prov:BALJINDER ACKERMAN MD 05/16/17 Tamsulosin Hcl* (Flomax*) 0.4 Mg Cap.er.24h, 0.4 MG PO QPM, #14 CAP Prov:BALJINDER ACKERMAN MD 05/16/17 Reported Medications Cholecalciferol* (Vitamin D3*) 1,000 Unit Tablet, 1000 UNIT PO DAILY, TAB 05/16/17 Calcium Carbonate* (Oysco-500*) 1 Tab Tablet, 1 TAB PO DAILY, TAB 04/18/16 Ferrous Sulfate (Iron) 325 Mg Capsr, 325 MG PO DAILY 04/18/16 Meloxicam* (Mobic*) 15 Mg Tablet, 15 MG PO DAILY, #30 TAB 04/18/16 Allergies Allergies: Coded Allergies: No Known Allergies (Verified Allergy, Unknown, 06/20/17) PMhx/Soc History of Surgery: Yes ( X1, APPY) Anesthesia Reaction: No Hx Neurological Disorder: No Hx Respiratory Disorders: No Hx Cardiac Disorders: No Hx Psychiatric Problems: No Hx Miscellaneous Medical Probl: Yes (OSTEOARTHRITIS) Hx Alcohol Use: No Hx Substance Use: No Hx Tobacco Use: No Smoking Status: Never smoker Physical Exam Vitals Vital Signs Date Time Temp Pulse Resp B/P Pulse Ox O2 Delivery O2 Flow Rate FiO2 07/15/17 15:23 99.1 71 16 105/58 96 Physical Exam GENERAL: well-developed/well-nourished, in no apparent distress, non-toxic appearing HENT: NC/AT, moist mucous membranes EYES: Conjunctiva normal NECK: Supple, no lymphadenopathy PULM: CTA bilaterally, no rales, rhonchi, or wheezing heard CV: Normal S1S2, RRR, good capillary refill GI: Soft, non-distended, tender to palpation in all quadrants Normal bowel sounds, no masses or organomegaly felt on exam No gross peritonitis, no bruits Negative Rovsing, negative Howard, negative McBurney's point, Negative CVAT BACK: No masses EXT: No clubbing, cyanosis, or edema NEURO: Alert and Orientated SKIN: Intact, normal turgor PSYCH: Normal mood and mentation Result Diagram: 07/15/17193907/15/171939 Results 24 hrs Laboratory Tests Test 07/15/17 19:40 White Blood Count 10.210^3/ul Red Blood Count 3.1210^6/ul Hemoglobin 9.1g/dl Hematocrit 29.2% Mean Corpuscular Volume 93.6fl Mean Corpuscular Hemoglobin 29.2pg Mean Corpuscular Hemoglobin Concent 31.2g/dl Red Cell Distribution Width 14.9% Platelet Count 13761^3/UL Mean Platelet Volume 9.2fl Neutrophils % 76.4% Lymphocytes % 18.1% Monocytes % 4.4% Eosinophils % 0.5% Basophils % 0.3% Nucleated Red Blood Cells % 0.0/100WBC Neutrophils # (Manual) 7.810^3/ul Lymphocytes # 1.910^3/ul Monocytes # 0.510^3/ul Eosinophils # 0.110^3/ul Basophils # 0.010^3/ul Nucleated Red Blood Cells # 0.010^3/ul Urine Color YELLOW Urine Clarity CLEAR Urine pH 5.0 Urine Specific [place] 1.016 Urine Ketones 1+mg/dL Urine Nitrite NEGATIVEmg/dL Urine Bilirubin NEGATIVEmg/dL Urine Urobilinogen NEGATIVEmg/dL Urine Leukocyte Esterase TRACELeu/ul Urine Microscopic RBC 3/HPF Urine Microscopic WBC 7/HPF Urine Squamous Epithelial Cells FEW/HPF Urine Mucus FEW/HPF Urine Hemoglobin 2+mg/dL Urine Glucose NEGATIVEmg/dL Urine Total Protein NEGATIVEmg/dl Sodium Level 143mmol/L Potassium Level 4.2mmol/L Chloride Level 104mmol/L Carbon Dioxide Level 23mmol/L Anion Gap 20 Blood Urea Nitrogen 16mg/dl Creatinine 0.76mg/dl Glucose Level 103mg/dl Calcium Level 9.0mg/dl Total Bilirubin 0.0mg/dl Direct Bilirubin 0.00mg/dl Indirect Bilirubin 0.0mg/dl Aspartate Amino Transf (AST/SGOT) 23IU/L Alanine Aminotransferase (ALT/SGPT) 29IU/L Alkaline Phosphatase 68IU/L Total Protein 7.6g/dl Albumin 4.1g/dl Globulin 3.50g/dl Albumin/Globulin Ratio 1.17 Lipase 91U/L Current Medications Medications (Trade) Dose Ordered Sig/Magaly Route PRN Reason Start Time Stop Time Status Last Admin Dose Admin Ondansetron HCl (Zofran Odt) 4 mg ONCE STAT ODT 07/15/17 19:17 07/15/17 19:19 DC 07/15/17 19:33 Acetaminophen/ Hydrocodone Bitart ([place] (5/325)) 1 tab ONCE STAT PO 07/15/17 19:17 07/15/17 19:19 DC 07/15/17 19:33 Procedures/MDM This is a 57-year-old female without any relevant medical problems presenting to the emergency department with generalized abdominal pain, dysuria, nausea and episode of vomiting earlier today. Patient was found to have an obstructive ascending colon neoplasm with no evidence of distant metastasis on the abdomen and pelvis on CT. Patient will need to be admitted to [facility] for further evaluation and management.Patient has stable vital signs, she appears well. On examination patient appears well, she has stable vital signs, she does not seem to be in significant pain. She was generally tender in all quadrants on examination. CT abd and pelvis without contrast: 1. Obstructive ascending colon neoplasm is identified just above the level of the cecum, with significant dilatation of cecum and distal ileum proximally. Prominent lymph nodes are present within the adjacent colonic mesenteric fat - local metastatic disease is not excluded. No evidence of distant metastasis is seen in the abdomen and pelvis. 2. Aortic atherosclerotic calcifications are noted. 3. Uterus demonstrates a small fundal fibroid. Last CT which was last year did not show any evidence of any neoplasms Departure Diagnosis: Primary Impression: Colon neoplasm Condition: Stable VAL HADDAD PA-C Jul 15, 2017 19:22
[2017-07-15 20:02] LABS: BASOPHILS % 0.3 % (0.0-2.0); EOSINOPHILS # 0.1 10^3/ul (0.0-0.5); EOSINOPHILS % 0.5 % (0.0-7.0); HEMATOCRIT 29.2 % (37.0-47.0); HEMOGLOBIN 9.1 g/dl (12.0-16.0); LYMPHOCYTES # 1.9 10^3/ul (0.8-2.9); LYMPHOCYTES % 18.1 % (15.0-51.0); MEAN CORPUSCULAR HEMOGLOBIN 29.2 pg (29.0-33.0); MEAN CORPUSCULAR HGB CONC 31.2 g/dl (32.0-37.0); MEAN CORPUSCULAR VOLUME 93.6 fl (82.0-101.0); MEAN PLATELET VOLUME 9.2 fl (7.4-10.4); MONOCYTE # 0.5 10^3/ul (0.3-0.9); MONOCYTES % 4.4 % (0.0-11.0); NEUTROPHILS % 76.4 % (39.0-77.0); PLATELET COUNT 460 10^3/UL (140-415); RED BLOOD COUNT 3.12 10^6/ul (4.20-5.40); RED CELL DISTRIBUTION WIDTH 14.9 % (11.5-14.5); WHITE BLOOD COUNT 10.2 10^3/ul (4.8-10.8)
[2017-07-15 20:16] LABS: ADD UMIC YES; UR ASCORBIC ACID 20 mg/dL (NEGATIVE); UR BILIRUBIN (Dip) NEGATIVE (NEGATIVE); UR BLOOD (Dip) 2+ mg/dL (NEGATIVE); UR CLARITY CLEAR (CLEAR); UR COLOR YELLOW (YELLOW); UR GLUCOSE (Dip) NEGATIVE (NEGATIVE); UR KETONES (Dip) 1+ mg/dL (NEGATIVE); UR LEUKOCYTE ESTERASE (Dip) TRACE Leu/ul (NEGATIVE); UR MUCUS FEW /HPF (NONE SEEN); UR NITRITE (Dip) NEGATIVE (NEGATIVE); UR RBC 3 /HPF (0-5); UR SPECIFIC GRAVITY (Dip) 1.016 (1.003-1.030); UR SQUAMOUS EPITHELIAL CELL FEW /HPF (FEW); UR TOTAL PROTEIN (Dip) NEGATIVE (NEGATIVE); UR UROBILINOGEN (Dip) NEGATIVE (NEGATIVE)
[2017-07-15 20:23] LABS: ALBUMIN 4.1 g/dl (3.3-4.9); ALBUMIN/GLOBULIN RATIO 1.17; CREATININE 0.76 mg/dl (0.44-1.00); POTASSIUM 4.2 mmol/L (3.5-5.1); TOTAL PROTEIN 7.6 g/dl (6.1-8.1)
--- NOTE | 2017-07-15 20:28 | RADRPT ---
PROCEDURE: CT Abdomen and Pelvis without contrast. CLINICAL INDICATION: Abdominal pain TECHNIQUE: CT of the abdomen and pelvis was performed on a multi-detector scanner without IV contr ast. Coronal and sagittal images were reformatted from the axial data set. One or more of the foll owing dose reduction techniques were used: automated exposure control, adjustment of the mA and/or k V according to patient size, use of iterative reconstruction technique. CTDI = 5.45 mGy. DLP = 303. 95 mGy-cm. COMPARISON: CT, 05/16/2017 FINDINGS: CT abdomen: The lung bases are clear. The heart size is normal, without pericardial effusion. Liver demonstrat es a benign cyst, stable over time. Gallbladder, biliary tree, pancreas, spleen, adrenal glands and kidneys are unremarkable except for a small benign right renal angiomyolipoma. No urolithiasis or obstructive uropathy is identified. The stomach is grossly unremarkable. The aorta is of normal caliber. Aortic vascular calcifications are present. There is no retroperit mac lymphadenopathy. The jimmy hepatis region is clear. CT pelvis: There is focal wall thickening and significant narrowing of the ascending colon just above the level of the cecum (coronal image 35), with marked dilatation of the cecum and distal ileum proximally - findings are compatible with obstructive colonic neoplasm. Prominent lymph nodes are identified in the adjacent colonic mesenteric fat - local metastases are not excluded. Small amount of pelvic vincent e fluid is present, likely reactive. There is no free intraperitoneal air or abscess. Sigmoid dive rticulosis is seen without diverticulitis. There is no evidence of appendicitis. Urinary bladder is grossly unremarkable. Uterus demonstrates a small fundal fibroid. No pelvic lym phadenopathy is identified. The surrounding osseous structures are remarkable for degenerative enthesopathy of the spine and sev ere left hip degenerative osteoarthrosis. No osteolytic or osteoblastic lesion is detected. IMPRESSION: 1. Obstructive ascending colon neoplasm is identified just above the level of the cecum, with signi ficant dilatation of cecum and distal ileum proximally. Prominent lymph nodes are present within th e adjacent colonic mesenteric fat - local metastatic disease is not excluded. No evidence of distan t metastasis is seen in the abdomen and pelvis. 2. Aortic atherosclerotic calcifications are noted. 3. Uterus demonstrates a small fundal fibroid. RPTAT: HH .Parker Thomas MD, MD Date Time Electronically viewed and signed by .Parker Thomas MD, MD on 07/15/2017 20:28 .R/
[2017-07-15] MEDS ORDERED: SOD CHLORIDE 0.9% 1,000 ML IV SCH (22:43)
[2017-07-15] MEDS ORDERED: ONDANSETRON 4 MG INJ IV PRN (23:00)
[2017-07-15] MEDS ORDERED: ACETAMINOPHEN 325 MG TAB PO PRN (23:00)
--- NOTE | 2017-07-15 23:47 | CONS ---
Date/Time of Note Date/Time of Note DATE: 07/15/17 TIME: 23:42 Assessment/Plan Assessment/Plan Additional Assessment/Plan Obstructing descending colon, most likely malignancy until proven otherwise NG tube, IV fluids, n.p.o. Surgery on this admission. Discussed laparoscopic, possible open, colon resection. All benefits, risks, alternatives discussed in detail. All questions answered. The patient elects to proceed Consultation Date/Type/Reason Admit Date/Time Date of Consultation: Jul 15, 2017 Reason for Consultation Abdominal pain Hx of Present Illness The patient is a 57-year-old female who developed increasing abdominal pain over the past few days. He has had some nausea and emesis. She denies weight loss, fevers or change in bowel habits. Continue treatment. A CT was ordered which revealed an ascending colon neoplasm, obstructing. I was called for consultation. Constitutional: improved, no complaints Eyes: no complaints ENT: no complaints Respiratory: no complaints Cardiovascular: no complaints Gastrointestinal: no complaints Genitourinary: no complaints Musculoskeletal: no complaints Skin: no complaints Neurologic: no complaints Endocrine: no complaints Lymphatic: no complaints Psychological: nl mood/affect, no complaints Immunologic: no complaints Past Medical History Medical History: other (Osteoarthritis) Past Surgical History Past Surgical Hx: no surgical history Family History Significant Family History: no pertinent family hx Social History Smoking Status: Never smoker Exam/Review of Systems Vital Signs Vitals Vital Signs Date Time Temp Pulse Resp B/P Pulse Ox O2 Delivery O2 Flow Rate FiO2 07/15/17 15:23 99.1 71 16 105/58 96 Exam Constitutional: alert, oriented, well developed Psych: no complaints Head: normocephalic Eyes: nl conjunctiva ENMT: nl external ears & nose Neck: supple Respiratory: clear to auscultation Cardiovascular: regular rate and rhythm Gastrointestinal: distended (Mildly), soft Extremities: normal pulses Neurological: STAFFING AND SCHEDULING COORDINATOR II-XII intact Skin: nl turgor Results Result Diagram: 07/15/17193907/15/171939 Results 24 hrs Laboratory Tests Test 07/15/17 19:40 White Blood Count 10.2 # Red Blood Count 3.12 L Hemoglobin 9.1 L Hematocrit 29.2 L Mean Corpuscular Volume 93.6 Mean Corpuscular Hemoglobin 29.2 Mean Corpuscular Hemoglobin Concent 31.2 L Red Cell Distribution Width 14.9 H Platelet Count 460 H Mean Platelet Volume 9.2 Neutrophils % 76.4 Lymphocytes % 18.1 Monocytes % 4.4 Eosinophils % 0.5 Basophils % 0.3 Nucleated Red Blood Cells % 0.0 Neutrophils # (Manual) 7.8 H Lymphocytes # 1.9 Monocytes # 0.5 Eosinophils # 0.1 Basophils # 0.0 Nucleated Red Blood Cells # 0.0 Urine Color YELLOW Urine Clarity CLEAR Urine pH 5.0 Urine Specific [place] 1.016 Urine Ketones 1+ H Urine Nitrite NEGATIVE Urine Bilirubin NEGATIVE Urine Urobilinogen NEGATIVE Urine Leukocyte Esterase TRACE A Urine Microscopic RBC 3 Urine Microscopic WBC 7 H Urine Squamous Epithelial Cells FEW Urine Mucus FEW A Urine Hemoglobin 2+ H Urine Glucose NEGATIVE Urine Total Protein NEGATIVE Sodium Level 143 Potassium Level 4.2 Chloride Level 104 Carbon Dioxide Level 23 Anion Gap 20 H Blood Urea Nitrogen 16 Creatinine 0.76 Glucose Level 103 Calcium Level 9.0 Total Bilirubin 0.0 L Direct Bilirubin 0.00 Indirect Bilirubin 0.0 Aspartate Amino Transf (AST/SGOT) 23 Alanine Aminotransferase (ALT/SGPT) 29 Alkaline Phosphatase 68 Total Protein 7.6 Albumin 4.1 Globulin 3.50 H Albumin/Globulin Ratio 1.17 Lipase 91 Medications Medications Current Medications Sodium Chloride (NS) 1,000 ml @ 80 mls/hr [id number] IV ; Start 07/15/17 at 22:43 ; Stop 07/16/17 at 11:[address] reveals obstructing colon neoplasm of the ascending colon SAHIL MCQUEEN MD Jul 15, 2017 23:46
[2017-07-15 23:58] VITALS: TEMP 98.7
[2017-07-16 01:20] VITALS: BP 128/76; PULSE 68; RESP 18
[2017-07-16] MEDS ORDERED: ONDANSETRON 4 MG INJ IV PRN (02:00)
[2017-07-16] MEDS: DEXTROSE 5%-0.45% NACL 1,000 ML IV SCH ×4 (02:26→22:00)
[2017-07-16] MEDS: morphine 4 MG/ML VIAL IV PRN ×3 (02:27→21:33)
[2017-07-16] MEDS: HYDROmorphONE 1 MG/ML SYG IV PRN ×2 (05:35→11:30)
[2017-07-16 06:15] LABS: BASOPHILS % 0.3 % (0.0-2.0); EOSINOPHILS # 0.1 10^3/ul (0.0-0.5); EOSINOPHILS % 1.4 % (0.0-7.0); HEMATOCRIT 26.3 % (37.0-47.0); HEMOGLOBIN 8.4 g/dl (12.0-16.0); LYMPHOCYTES # 1.9 10^3/ul (0.8-2.9); MEAN CORPUSCULAR HEMOGLOBIN 29.8 pg (29.0-33.0); MEAN CORPUSCULAR HGB CONC 31.9 g/dl (32.0-37.0); MEAN CORPUSCULAR VOLUME 93.3 fl (82.0-101.0); MEAN PLATELET VOLUME 9.1 fl (7.4-10.4); MONOCYTE # 0.6 10^3/ul (0.3-0.9); MONOCYTES % 9.3 % (0.0-11.0); NEUTROPHILS % 59.8 % (39.0-77.0); PLATELET COUNT 424 10^3/UL (140-415); RED BLOOD COUNT 2.82 10^6/ul (4.20-5.40); WHITE BLOOD COUNT 6.5 10^3/ul (4.8-10.8)
[2017-07-16 07:04] LABS: ALBUMIN 3.4 g/dl (3.3-4.9); ALBUMIN/GLOBULIN RATIO 1.17; CALCIUM 8.4 mg/dl (8.4-10.2); CREATININE 0.79 mg/dl (0.44-1.00); POTASSIUM 4.1 mmol/L (3.5-5.1); TOTAL PROTEIN 6.3 g/dl (6.1-8.1)
[2017-07-16 07:05] LABS: IRON 13 ug/dl (35-150)
[2017-07-16 07:14] LABS: TOTAL IRON BINDING CAPACITY 298 ug/dl (241-421)
[2017-07-16 07:44] VITALS: BP 103/64; RESP 20
[2017-07-16 08:06] LABS: FERRITIN 29.2 ng/ml (11.1-264.0)
[2017-07-16 09:25] LABS: CARCINOEMBRYONIC ANTIGEN 1.1 ng/ml (0.0-5.0)
--- NOTE | 2017-07-16 10:10 | HP ---
Date/Time of Note Date/Time of Note DATE: 07/16/17 TIME: 10:04 Assessment/Plan Lines/Catheters IV [facility]from [facility] Peripheral IV Assessment/Plan Assessment/Plan 1. Obstructing ascending colon mass, likely malignancy -Evaluated by surgery already with plan for surgical intervention -Need oncology consult as well 2. History of iron deficiency anemia - will check iron panel and ferritin to see the extent of deficiency. 3. History of arthritis -Pain management HPI/ROS Admit Date/Time Admit Date/Time ROS Eyes: no complaints ENT: no complaints Respiratory: no complaints Cardiovascular: no complaints Gastrointestinal: no complaints Genitourinary: no complaints Musculoskeletal: no complaints Skin: no complaints Neurologic: no complaints Lymphatic: no complaints Psychological: no complaints Immunologic: no complaints PMH/Family/Social Past Medical History Medical History: other Past Surgical History Past Surgical Hx: no surgical history Social History Smoking Status: Never smoker Exam/Review of Systems Vital Signs Vitals Vital Signs Date Time Temp Pulse Resp B/P Pulse Ox O2 Delivery O2 Flow Rate FiO2 07/16/17 07:44 98.2 58 20 103/64 98 07/16/17 01:20 Room Air Intake and Output 07/15/17 07/15/17 07/16/17 15:00 23:00 07:00 Intake Total 300 ml Balance 300 ml Exam Exam This is a 57-year-old female with a history of arthritis and iron deficiency anemia who presented to the ER complaining of abdominal pain. Pain is mainly localized in the lower abdominal region. She reported an episode of nonbilious nonbloody emesis. Denies chest pain, shortness of breath, urinary symptom, fever or chills. When she presented to the ER, CT abdomen and pelvis shows Obstructive ascending colon neoplasm is identified just above the level of the cecum, with significant dilatation of cecum and distal ileum proximally. Prominent lymph nodes are present within the adjacent colonic mesenteric fat - local metastatic disease is not excluded. No evidence of distant metastasis is seen in the abdomen and pelvis. Note however that she had CT abdomen pelvis exactly 2 months ago which did not reveal a colon neoplasm. Patient has already been evaluated by surgery with plan for surgical intervention. Constitutional: alert, oriented, well developed Head: atraumatic, normocephalic Eyes: EOMI, PERRL Respiratory: clear to auscultation, normal air movement Cardiovascular: nl pulses, regular rate and rhythm Gastrointestinal: soft, tender Extremities: normal pulses Labs Result Diagram: 07/16/1752907/16/17529 Medications Medications Current Medications Dextrose/Sodium Chloride (D5-1/2ns) 1,000 ml @ 100 mls/hr Q10H IV Last administered on 07/16/17 02:26; Admin Dose 100 MLS/HR; Start 07/16/17 at 02:00 Ondansetron HCl (Zofran Inj) 4 mg Q6H PRN IV NAUSEA AND/OR VOMITING; Start at 02:00 Morphine Sulfate (morphine) 4 mg Q4H PRN IV PAIN Last administered on 02:27; Admin Dose 4 MG; Start 07/16/17 at 02:00 Hydromorphone HCl (Dilaudid) 1 mg Q4H PRN IV PAIN Last administered on 05:35; Admin Dose 1 MG; Start 07/16/17 at 05:30 JOEY STEEL MD Jul 16, 2017 10:10
--- NOTE | 2017-07-16 11:19 | PN ---
Date/Time of Note Date/Time of Note DATE: 07/16/17 TIME: 11:15 Assessment/Plan VTE Prophylaxis VTE Prophylaxis Intervention: heparin Lines/Catheters IV Catheter Type (from Nrs): Peripheral IV Assessment/Plan Chief Complaint/Hosp Course Assessment/Plan: 1. Obstructing ascending colon mass, likely malignancy. Evaluated by surgery already with plan for surgical intervention. -Awaiting oncology consult as well, as well as GI -NG tube per surgery recommendations, will add viscous lidocaine for discomfort and pain with this 2. History of iron deficiency anemia -Follow-up iron panel and ferritin to see the extent of deficiency. 3. History of arthritis -Pain management Problems: Subjective 24 Hr Interval Summary Free Text/Dictation Patient having some discomfort with the NG tube. Awaiting to be seen by oncology and GI teams. Exam/Review of Systems Vital Signs Vitals Vital Signs Date Time Temp Pulse Resp B/P Pulse Ox O2 Delivery O2 Flow Rate FiO2 07/16/17 07:44 98.2 58 20 103/64 98 07/16/17 01:20 Room Air Intake and Output 07/15/17 07/15/17 07/16/17 15:00 23:00 07:00 Intake Total 300 ml Balance 300 ml Exam Constitutional: alert, oriented, well developed, NG tube in place Psych: no complaints Head: normocephalic Eyes: nl conjunctiva ENMT: nl external ears & nose Neck: supple Respiratory: clear to auscultation Cardiovascular: regular rate and rhythm Gastrointestinal: distended (Mildly), soft Extremities: normal pulses Neurological: VP SCIENTIFIC AFFAIRS II-XII intact Results Result Diagram: 07/16/17 0530 07/16/17 0530 Results 24 hrs Laboratory Tests Test 07/15/17 19:40 07/16/17 05:30 White Blood Count 10.2 # 6.5 # Red Blood Count 3.12 L 2.82 L Hemoglobin 9.1 L 8.4 L Hematocrit 29.2 L 26.3 L Mean Corpuscular Volume 93.6 93.3 Mean Corpuscular Hemoglobin 29.2 29.8 Mean Corpuscular Hemoglobin Concent 31.2 L 31.9 L Red Cell Distribution Width 14.9 H 15.0 H Platelet Count 460 H 424 H Mean Platelet Volume 9.2 9.1 Neutrophils % 76.4 59.8 Lymphocytes % 18.1 29.0 Monocytes % 4.4 9.3 Eosinophils % 0.5 1.4 Basophils % 0.3 0.3 Nucleated Red Blood Cells % 0.0 0.0 Neutrophils # (Manual) 7.8 H 3.9 Lymphocytes # 1.9 1.9 Monocytes # 0.5 0.6 Eosinophils # 0.1 0.1 Basophils # 0.0 0.0 Nucleated Red Blood Cells # 0.0 0.0 Urine Color YELLOW Urine Clarity CLEAR Urine pH 5.0 Urine Specific [place] 1.016 Urine Ketones 1+ H Urine Nitrite NEGATIVE Urine Bilirubin NEGATIVE Urine Urobilinogen NEGATIVE Urine Leukocyte Esterase TRACE A Urine Microscopic RBC 3 Urine Microscopic WBC 7 H Urine Squamous Epithelial Cells FEW Urine Mucus FEW A Urine Hemoglobin 2+ H Urine Glucose NEGATIVE Urine Total Protein NEGATIVE Sodium Level 143 144 Potassium Level 4.2 4.1 Chloride Level 104 107 Carbon Dioxide Level 23 27 Anion Gap 20 H 14 Blood Urea Nitrogen 16 14 Creatinine 0.76 0.79 Glucose Level 103 110 Calcium Level 9.0 8.4 Total Bilirubin 0.0 L 0.0 L Direct Bilirubin 0.00 0.00 Indirect Bilirubin 0.0 0.0 Aspartate Amino Transf (AST/SGOT) 23 21 Alanine Aminotransferase (ALT/SGPT) 29 26 Alkaline Phosphatase 68 50 Total Protein 7.6 6.3 # Albumin 4.1 3.4 Globulin 3.50 H 2.90 Albumin/Globulin Ratio 1.17 1.17 Lipase 91 Iron Level 13 L Total Iron Binding Capacity 298 Percent Iron Saturation 4 L Ferritin 29.2 Carcinoembryonic Antigen 1.1 Medications Medications Current Medications Dextrose/Sodium Chloride (D5-1/2ns) 1,000 ml @ 100 mls/hr Q10H IV Last administered on 07/16/17 02:26; Admin Dose 100 MLS/HR; Start 07/16/17 at 02:00 Ondansetron HCl (Zofran Inj) 4 mg Q6H PRN IV NAUSEA AND/OR VOMITING; Start at 02:00 Morphine Sulfate (morphine) 4 mg Q4H PRN IV PAIN Last administered on 02:27; Admin Dose 4 MG; Start 07/16/17 at 02:00 Hydromorphone HCl (Dilaudid) 1 mg Q4H PRN IV PAIN Last administered on 05:35; Admin Dose 1 MG; Start 07/16/17 at 05:30 Lidocaine (Xylocaine (Viscous)) 15 ml QID PRN PO PAIN LEVEL 7-10; Start at 11:30; Status UNV Pantoprazole (Protonix Iv) 40 mg DAILY@06 IV ; Start 07/17/17 at 06:00; Status UNV Acetaminophen (Tylenol Tab) 650 mg Q6H PRN PO PAIN AND OR ELEVATED TEMP; Start 07/16/17 at 11:30; Status UNV RICH VERDE Jul 16, 2017 11:19
[2017-07-16] MEDS ORDERED: ACETAMINOPHEN 325 MG TAB PO PRN (11:30)
[2017-07-16] MEDS ORDERED: LIDOCAINE 2% VISC 15 ML CUP PO PRN (11:30)
[2017-07-16] MEDS: FAMOTIDINE 20 MG INJ IV SCH ×2 (12:08→21:33)
[2017-07-16] MEDS: HEPARIN 5,000 UNIT/0.5 ML VIAL SC SCH ×2 (12:08→21:39)
[2017-07-16 13:00] LABS: CHOL/HDL RATIO 3.3 RATIO
[2017-07-16 13:09] VITALS: BP 110/62; RESP 20
--- NOTE | 2017-07-16 16:37 | RADRPT ---
PROCEDURE: XR Chest. CLINICAL INDICATION: Check nasogastric tube position. TECHNIQUE: Single frontal view. COMPARISON: None. FINDINGS: The lungs are clear. There is a nasogastric tube with the tip in the distal esophagus. This should be advanced approximately 10 cm. The heart size is normal. There is no pleural effusion. There is no pneumothorax. IMPRESSION: 1. Nasogastric tube tip in the distal esophagus. This should be advanced approximately 10 cm. The patient's nurse was informed of the results. 2. Otherwise unremarkable study. RPTAT: QQ .Sly Power MD, MD Date Time Electronically viewed and signed by .Sly Power MD, on 07/16/2017 16:37 .R/
--- NOTE | 2017-07-16 16:40 | RADRPT ---
PROCEDURE: XR Chest. CLINICAL INDICATION: Check nasogastric tube position. TECHNIQUE: Single frontal view. COMPARISON: Prior study done earlier the same day. FINDINGS: The lungs are clear. The nasogastric tube tip is now in the stomach. The heart size is normal. There is no pleural effusion. There is no pneumothorax. IMPRESSION: 1. Nasogastric tube tip in the stomach. 2. Otherwise normal chest radiograph. RPTAT: QQ .Sly Power MD, MD Date Time Electronically viewed and signed by .Sly Power MD, on 07/16/2017 16:40 .R/
--- NOTE | 2017-07-16 16:44 | PN ---
Date/Time of Note Date/Time of Note DATE: 07/16/17 TIME: 16:43 Assessment/Plan Lines/Catheters IV C[facility] Type ([facility] Peripheral IV Assessment/Plan Chief Complaint/Hosp Course Obstructing ascending colon lesion likely malignancy Discussed surgery once again via paper mill supervisor. Discussed laparoscopic, possible open, colon resection. All benefits, risks, alternatives discussed in detail. All questions answered. The patient elects to proceed Problems: Subjective 24 Hr Interval Summary Constitutional: no complaints Exam/Review of Systems Vital Signs Vitals Vital Signs Date Time Temp Pulse Resp B/P Pulse Ox O2 Delivery O2 Flow Rate FiO2 07/16/17 13:09 98.6 60 20 110/62 95 07/16/17 01:20 Room Air Intake and Output 07/15/17 07/15/17 07/16/17 15:00 23:00 07:00 Intake Total 300 ml Balance 300 ml Exam Respiratory: clear to auscultation Cardiovascular: regular rate and rhythm Gastrointestinal: distended, soft Results Result Diagram: 07/16/17 0530 07/16/17 0530 SAHIL MCQUEEN MD Jul 16, 2017 16:44
[2017-07-16 19:48] VITALS: BP 111/69; RESP 20
--- NOTE | 2017-07-16 20:31 | EN ---
Date/Time of Note Date/Time of Note DATE: 07/16/17 TIME: 20:26 Event Note Medicine Medicine Event Note Oncology consultation dictated-- Pt is a 57 y/p postmenopausal female admitted with 2-3 days of lower abd pain with episodes of N/V. Pt found to have an obstructing mass in the ascending colon with pericolonic mesenteric lymphadenopathy. Pt has had a chronic anemia and is now iron deficient. CEA--1.1. Pt has been in ER several times in past 3-4 mos with c/o abd pain. These were due to nephrolithiasis and UTI. Pt did have CT of abd/pelvis on 05/16 and no mass was seen. Have explained to patient that surgery is needed to relieve the obstruction and provide a diagnosis. JESS GALVAN MD Jul 16, 2017 20:31
--- NOTE | 2017-07-16 22:14 | CONS ---
DATE OF ADMISSION: 07/15/2017 DATE OF CONSULTATION: 07/16/2017 REFERRING PHYSICIAN: Ulysses Roldan MD REASON FOR CONSULTATION: Colonic mass. HISTORY OF PRESENT ILLNESS: Thank you very much for asking me see this very pleasant patient in oncologic consultation. As you know, Ms. Tamez is a 57-year-old female who was admitted to [facility] on 07/15/2017 after presenting to the emergency room with 2 or 3 days' history of abdominal pain. The patient states that the pain was located in the lower abdomen, and it was somewhat cramping in nature. The patient did have 1 or 2 episodes of nausea and vomiting. There was no evidence of hematochezia, however. The patient has undergone a CT scan of the abdomen and pelvis. This demonstrates an obstructing ascending colonic mass, which is identified at the level of the cecum, with significant dilatation of the cecum and distal ileum proximally. There was also lymphadenopathy seen in the pericolonic mesenteric fat. There was no evidence of distant metastases seen. Other x-rays have included an x-ray of the chest, which does not reveal any pulmonary abnormalities. The patient states that she has had similar abdominal pain in the past, and review of the patient's records does demonstrate she has been seen in the emergency room here several times in the past few months. On May 16 of this year, the patient did have a CT scan of the abdomen and pelvis because of nephrolithiasis. This was on the left side, and there was mild to moderate left hydronephrosis and hydroureter. There was no mention of any colonic lesions seen. The patient has also been in the emergency rooms at least 2 times with abdominal pain, which was stated to have been related to urinary tract infection. The patient states that her appetite has been decreased. She does not feel; however, that she has had any weight loss. The patient states that she has had no change in bowel habits. She has had noticed no change in stool caliber. No reports of melena or hematochezia. LABORATORY: On admission, the patient's white count was 10,200, hemoglobin 9.1, hematocrit 29.2, MCV 93.6, MCH 29.2, MCHC 31.4, RDW 14.9, and platelet count 460,000. A comprehensive metabolic panel was normal. Serum iron 13, iron-binding capacity of 298, percent saturation of 4 percent and a ferritin of 29.2. A CEA has been obtained, and this is 1.1. PAST MEDICAL HISTORY: Includes the above-mentioned renolithiasis and urinary tract infections. She also states she has had a history of iron deficiency for several years. She states that she had never been told of the etiology of the iron deficiency. She states she did have a colonoscopy performed about 8 years ago, and this was negative. Patient denies any history of hypertension, heart disease, diabetes, renal or hepatic disease. She has had some complaints of arthritis. PAST SURGICAL HISTORY: Have included a section, as well as an appendectomy. GYNECOLOGIC/OBSTETRICAL HISTORY: Patient is postmenopausal. Last menstrual period was at approximately 52 years of age. She is 3, para 3, AB1. One with resulted 1 live and 1 stillborn. Patient has never taken exogenous hormones, except for control pills in the past. She states her last mammogram was in approximately March of this year. EXPOSURES: Patient has no known history of any exposures to industrial toxins or ionizing radiation. SOCIAL HISTORY: She does not smoke or use tobacco products. Does not use alcohol. FAMILY HISTORY: Remarkable, in that there is no known history of any colorectal or other GI malignancy. PHYSICAL EXAMINATION: GENERAL: At this time reveals a well-developed, well-nourished female, in no acute distress. VITAL SIGNS: Temperature 98.5, pulse 92 per minute and regular, respirations 20, blood pressure 111/69, pulse oximetry 100 percent on room air. SKIN: No ecchymosis. No petechiae or rashes. HEENT: Normocephalic. No evidence of trauma. Pupils equal, round, react to light and accommodation. Sclerae are nonicteric. Oral mucosa is moist, without lesions. Tongue is well papillated. There is no gingival hyperplasia. No hypertrophy of Waldeyer's ring. There is a nasogastric tube in place. This is not connected to suction. NECK: Supple. No jugular vein distention or thyroid enlargement. CHEST: Clear to auscultation and percussion. No rhonchi, wheezes, rales, or rubs. There is no pain on percussion of spine, sternum, clavicles or ribs. NODES: No palpable lymphadenopathy in any lymph node-bearing area. BREASTS: No masses, skin retraction, nipple inversion. HEART: Regular sinus rhythm. No S3's, S4's, or murmurs. No rubs. ABDOMEN: Mildly distended, but soft. There is no guarding, no rebound tenderness. Bowel sounds are absent. EXTREMITIES: Good range of motion. No clubbing, edema, or cyanosis. No palpable cords or Homans sign. DISCUSSION: Although the patient's CEA is only 1.1, it is very likely that this patient's obstructing ascending colon mass represents an adenocarcinoma of the ascending colon. I do agree with the plan for surgical intervention. Patient has been seen in consultation by Dr. Horace Stewart, who has discussed possible surgery with the patient, including laparoscopic surgery. I have reinforced with this patient that surgical intervention is necessary. I have explained to the patient that any further discussion regarding possible treatments will depend upon the findings at surgery, including histology and lymph node status. Once again, thank you very much for the opportunity of participating in the medical care of this very interesting and pleasant patient. I will be happy to follow this patient with you and assist in the oncologic evaluation and followup of this patient. Dictated By: Adrian Robertson MD /shanta/jamey /Document#: [id number]
[2017-07-17] VITALS (14 sets, daily range): BP systolic 104–139; BP diastolic 64–72; PULSE 66–72; RESP 14–20
[2017-07-17] MEDS: PHENOL 1.4% SOLN 180 ML BTL MT PRN ×2 (04:42→07:38)
[2017-07-17 06:30] LABS: BASOPHILS % 0.2 % (0.0-2.0); EOSINOPHILS # 0.2 10^3/ul (0.0-0.5); EOSINOPHILS % 2.8 % (0.0-7.0); HEMOGLOBIN 7.5 g/dl (12.0-16.0); LYMPHOCYTES # 1.2 10^3/ul (0.8-2.9); LYMPHOCYTES % 22.2 % (15.0-51.0); MEAN CORPUSCULAR HEMOGLOBIN 28.2 pg (29.0-33.0); MEAN PLATELET VOLUME 9.3 fl (7.4-10.4); MONOCYTE # 0.6 10^3/ul (0.3-0.9); MONOCYTES % 11.2 % (0.0-11.0); NEUTROPHILS % 63.4 % (39.0-77.0); PLATELET COUNT 392 10^3/UL (140-415); RED BLOOD COUNT 2.66 10^6/ul (4.20-5.40); RED CELL DISTRIBUTION WIDTH 14.7 % (11.5-14.5); WHITE BLOOD COUNT 5.4 10^3/ul (4.8-10.8)
[2017-07-17] MEDS ORDERED: PROPOFOL 200 MG INJ ONE (07:00)
[2017-07-17] MEDS ORDERED: SUCCINYLCHOLINE CHLORIDE 100 MG/5 ML SYG IV ONE (07:00)
[2017-07-17] MEDS ORDERED: CEFAZOLIN 1 GM INJ ONE (07:00)
[2017-07-17 07:02] LABS: CALCIUM 8.3 mg/dl (8.4-10.2); CREATININE 0.67 mg/dl (0.44-1.00)
[2017-07-17 07:27] LABS: POTASSIUM 3.5 mmol/L (3.5-5.1)
[2017-07-17] MEDS: DEXTROSE 5%-0.45% NACL 1,000 ML IV SCH (07:39)
[2017-07-17] MEDS: HEPARIN 5,000 UNIT/0.5 ML VIAL SC SCH (08:28)
[2017-07-17] MEDS: FAMOTIDINE 20 MG INJ IV SCH ×2 (09:24→20:19)
[2017-07-17] MEDS: morphine 4 MG/ML VIAL IV PRN (10:06)
--- NOTE | 2017-07-17 12:55 | PN ---
Date/Time of Note Date/Time of Note DATE: 07/17/17 TIME: 12:51 Assessment/Plan VTE Prophylaxis VTE Prophylaxis Intervention: heparin Lines/Catheters IV Catheter Type (from Nrsg): Peripheral IV Assessment/Plan Chief Complaint/Hosp Course Assessment/Plan: 57-year-old female with: 1. Obstructing ascending colon mass, likely malignancy. Evaluated by surgery and oncology teams with plan for surgical intervention later today. -Follow-up postop recommendations -Continue NG tube per surgery recommendations, with viscous lidocaine for discomfort and pain with this 2. History of iron deficiency anemia -Follow-up iron panel and ferritin to see the extent of deficiency. 3. History of arthritis -Pain management Problems: Subjective 24 Hr Interval Summary Free Text/Dictation Patient seen by oncology and surgery teams. Awaiting for surgery later today. Still complaining of some throat pain where the NG tube is in place Exam/Review of Systems Vital Signs Vitals Vital Signs Date Time Temp Pulse Resp B/P Pulse Ox O2 Delivery O2 Flow Rate FiO2 07/17/17 07:50 98.6 67 18 107/65 95 07/16/17 01:20 Room Air Intake and Output 07/16/17 07/16/17 07/17/17 15:00 23:00 07:00 Intake Total 700 ml 1000 ml 800 ml Output Total 200 ml Balance 700 ml 800 ml 800 ml Exam Constitutional: alert, oriented, well developed, NG tube in place Psych: no complaints Head: normocephalic Eyes: nl conjunctiva ENMT: nl external ears & nose Neck: supple Respiratory: clear to auscultation Cardiovascular: regular rate and rhythm Gastrointestinal: distended (Mildly), soft Extremities: normal pulses Neurological: CERAMIC ENGINEERING PROFESSOR II-XII intact Results Result Diagram: 07/17/17 0553 07/17/17 0553 Results 24 hrs Laboratory Tests Test 07/17/17 05:53 07/17/17 07:30 White Blood Count 5.4 Red Blood Count 2.66 L Hemoglobin 7.5 L Hematocrit 25.0 L Mean Corpuscular Volume 94.0 Mean Corpuscular Hemoglobin 28.2 L Mean Corpuscular Hemoglobin Concent 30.0 L Red Cell Distribution Width 14.7 H Platelet Count 392 Mean Platelet Volume 9.3 Neutrophils % 63.4 Lymphocytes % 22.2 Monocytes % 11.2 H Eosinophils % 2.8 Basophils % 0.2 Nucleated Red Blood Cells % 0.0 Neutrophils # (Manual) 3.5 Lymphocytes # 1.2 Monocytes # 0.6 Eosinophils # 0.2 Basophils # 0.0 Nucleated Red Blood Cells # 0.0 Sodium Level 141 Potassium Level 3.5 Chloride Level 105 Carbon Dioxide Level 27 Anion Gap 13 Blood Urea Nitrogen 9 Creatinine 0.67 Glucose Level 109 Calcium Level 8.3 L Stool Occult Blood POSITIVE Medications Medications Current Medications Dextrose/Sodium Chloride (D5-1/2ns) 1,000 ml @ 100 mls/hr Q10H IV Last administered on 07/17/17 07:39; Admin Dose 100 MLS/HR; Start 07/16/17 at 02:00 Ondansetron HCl (Zofran Inj) 4 mg Q6H PRN IV NAUSEA AND/OR VOMITING; Start at 02:00 Morphine Sulfate (morphine) 4 mg Q4H PRN IV PAIN Last administered on 10:06; Admin Dose 4 MG; Start 07/16/17 at 02:00 Hydromorphone HCl (Dilaudid) 1 mg Q4H PRN IV PAIN Last administered on 11:30; Admin Dose 1 MG; Start 07/16/17 at 05:30 Lidocaine (Xylocaine (Viscous)) 15 ml QID PRN PO PAIN LEVEL 7-10 Last administered on 07/16/17 15:26; Admin Dose 15 ML; Start 07/16/17 at 11:30 Famotidine (Pepcid Iv) 20 mg BID IV Last administered on 07/17/17 09:24; Admin Dose 20 MG; Start 07/16/17 at 12:00 Acetaminophen (Tylenol Tab) 650 mg Q6H PRN PO PAIN AND OR ELEVATED TEMP; Start 07/16/17 at 11:30 Heparin Sodium (Porcine) (Heparin (5000 Units/0.5 ml)) 5,000 unit BID SC Last administered on 07/16/17 21:39; Admin Dose 5,000 UNIT; Start 07/16/17 at 12:00 Phenol (Chloraseptic Throat Sellers) 2 spray Q2H PRN MT SORE THROAT Last administered on 07/17/17 07:38; Admin Dose 2 SPRAY; Start 07/16/17 at 21:30 RICH VERDE Jul 17, 2017 12:55
[2017-07-17] MEDS ORDERED: morphine 4 MG/ML VIAL IV PRN (13:00)
[2017-07-17] MEDS ORDERED: ONDANSETRON 4 MG INJ IV PRN (13:00)
[2017-07-17] MEDS ORDERED: MIDAZOLAM 1 MG/ML 2 ML INJ ONE (13:07)
[2017-07-17] MEDS ORDERED: BUPIVACAINE 0.5% (SDV) 30 ML INJ ONE (13:27)
[2017-07-17] MEDS ORDERED: ONDANSETRON 4 MG INJ ONE (13:44)
[2017-07-17] MEDS ORDERED: FAMOTIDINE 20 MG INJ ONE (13:45)
[2017-07-17] MEDS ORDERED: DEXAMETHASONE 4 MG/ML 1 ML INJ ONE (13:45)
[2017-07-17] MEDS ORDERED: LIDOCAINE 1% (MDV) 20 ML INJ ONE (14:14)
[2017-07-17] MEDS ORDERED: ROPIVACAINE 0.2% 20 ML VIAL ONE (14:14)
--- NOTE | 2017-07-17 14:28 | OPR ---
Date/Time of Note Date/Time of Note DATE: 07/17/17 TIME: 14:21 Operative Report Procedure Date: Jul 17, 2017 Preoperative Diagnosis Obstructing ascending colon lesion Postoperative Diagnosis Ascending colon carcinoma Operation Performed Lap-assisted extended R hemicolectomy Surgeon: SAHIL MCQUEEN MD Anesthesia Type: general Anesthesiologist: ANIA AIKEN DO Estimated Blood Loss: minimal Specimens terminal ileum and R colon Complications: no Pt Condition Post Procedure: stable Disposition: PACU Operative\Procedure Findings ascending colon neoplasm SAHIL MCQUEEN MD Jul 17, 2017 14:28
[2017-07-17] MEDS ORDERED: SUGAMMADEX SODIUM 200 MG/2 ML VIAL IV ONE (14:34)
[2017-07-17] MEDS ORDERED: HYDROmorphONE (0.2 MG/ML) 10ML SYG IV PRN ×2 (15:00)
[2017-07-17] MEDS ORDERED: MEPERIDINE 25 MG INJ IV PRN (15:00)
[2017-07-17] MEDS ORDERED: DIPHENHYDRAMINE 50 MG INJ IV PRN (15:00)
[2017-07-17] MEDS ORDERED: hydrALAzine 20 MG INJ IV PRN (15:00)
[2017-07-17] MEDS: HYDROmorphONE 1 MG/ML SYG IV PRN ×2 (15:10→23:59)
[2017-07-17] MEDS: KETOROLAC 30 MG INJ IV SCH ×2 (15:10→20:18)
[2017-07-17] MEDS: D5W-0.45 NACL + KCL 20 MEQ 1,000 ML IV SCH (15:55)
--- NOTE | 2017-07-17 18:34 | OPR ---
DATE OF OPERATION: 07/15/2017 PREOPERATIVE DIAGNOSIS: Obstructing ascending colon lesion. POSTOPERATIVE DIAGNOSIS: Obstructing ascending colon carcinoma. OPERATION PERFORMED: Ex lap assisted extended right hemicolectomy. SURGEON: Dr. Horace Stewart. VACUUM CLEANER REPAIRER: None. ANESTHESIA: General tracheal. ANESTHESIOLOGIST: Dr. Phan. ESTIMATED BLOOD LOSS: Minimal. COMPLICATIONS: None. SPECIMEN: Terminal ileal and right colon. FINDINGS: Obstructing lesion of ascending colon. INDICATIONS: Ms. Tamez is a 57-year-old female, who presented to the ER 2 days ago with a bowel obstruction from an ascending colon lesion. This is concerning for malignancy. I discussed proceeding with a laparoscopic, possible open right hemicolectomy. All benefits, risks, alternatives discussed in detail. Questions answered. Patient wants to proceed. OPERATIVE PROCEDURE: Patient was brought to the operative room, placed supine on the table. After preop antibiotics and SCDs were applied. Patient was intubated. Del Rosario catheter was inserted. The abdomen was cleaned, prepped, draped in sterile fashion. All incisions were infiltrated with 1 percent lidocaine with epi. A 7 cm incision was made in the midline using electrocautery dissected down through the abdominal wall. The abdominal cavity was entered. A gel port trocar was placed under direct vision. The right upper quadrant and right and left upper quadrant 5 mm trocars were placed. The abdomen was insufflated with 15 mmHg and CO2. I immediately palpated firm hard mass in the ascending colon, and using the Harmonic Scalpel I incised the peritoneal attachments to the lateral sidewall, mobilize the cecum in the right colon around the hepatic flexure. I divided the omentum from the transverse colon. The cecum and right colon was completely mobile and I was able to bring out the abdominal cavity. I transected the terminal ileum with a blue load of a 60 mm endo linear cutter. I then transected the proximal transverse colon with a 60 mm echelon blue load. The intervening mesentery was then serially clamped, cut, and divided with 0 silk ties. A [id number] functional and end-to-end stapled anastomosis was then performed with the 60 mm echelon blue load. The colotomy was closed with a TA 60 stapler. The anastomosis was hemostatic without tension and was oriented correctly. The mesentery was then closed with interrupted 3-0 silk sutures. I returned the bowel to the abdomen, bypass off the specimen. I then reinsufflated, irrigated out the right upper quadrant and pelvis was cleared and the abdomen was hemostatic. At this point, I removed all trocars. The fascia midline incision was closed with two 0 PDS one superiorly and one inferiorly tied in the middle. The wound was irrigated and all incisions were closed with 4-0 Monocryl and Steri Strips. The patient are procedure well. Was extubated in the OR, transferred to recovery in stable condition. Dictated By: Horace Stewart MD /shanta/chris /Document#: [id number] ELIZABETH
--- NOTE | 2017-07-17 20:50 | PN ---
DATE: 07/17/2017 SUBJECTIVE: Patient has undergone laparoscopic resection of the ascending colon, and terminal ilium. Apparently, patient tolerated the procedure well. She now complains of some feeling of abdominal distention and difficulty and pain on taking a deep inspiration. OBJECTIVE DATA: GENERAL: Patient is a well-developed, well-nourished female, who is somewhat lethargic but in no acute distress. VITAL SIGNS: Temperature 97.8, pulse 76, respirations 18, blood pressure is 132/65, pulse oximetry 94 percent on room air. SKIN: No ecchymosis, no petechiae or rashes. HEENT: Normocephalic. No evidence of trauma. Pupils equal, round, react to light and accommodation. There is no scleral icterus. Oral mucosa is moist, without lesions. NECK: Neck is supple. No jugular vein distention or thyroid enlargement. CHEST: Chest is clear to auscultation, percussion. No rhonchi, wheezes, rales, or rubs. HEART: Regular sinus rhythm. No S3's, S4's or murmurs. No rubs. ABDOMEN: Abdomen is mildly distended and slightly firm. No rebound tenderness. Bowel sounds are absent. EXTREMITIES: Good range of motion. No clubbing, edema or cyanosis. No palpable cords or Homans sign. NEUROLOGIC: Normal, except for the patient's mild lethargy. LABORATORY AND DIAGNOSTIC DATA: CBC preoperatively includes white count of 5700, hemoglobin 7.5, hematocrit 25, and platelet count is 394,000. Chemistry: Sodium 141, potassium 3.5, BUN 9 and creatinine of . ASSESSMENT: 1. Status post laparoscopic right hemicolectomy. 2. Iron-deficiency anemia. PLAN: 1. I have discussed with the patient that pathology results would likely be available on July 19. At that time, we will discuss with her whether any further therapy is required. 2. The patient is iron deficient. Based on the patient's weight of 55 kg and hemoglobin of 7.5, it is estimated that the patient will require 1650 mg of elemental iron to replete her iron stores. 3. Will start the patient at this time on parental iron. She will receive 125 mg of elemental iron intravenously on a daily basis for 3 days. Dictated By: Adrian Robertson MD /[email or web address]/jamey /Document#: [id number]
[2017-07-17] MEDS: SOD FERRIC GLUC COMPLX 125 MG in SOD CHLORIDE 0.9% 100 ML IVPB SCH (21:36)
[2017-07-18] MEDS: D5W-0.45 NACL + KCL 20 MEQ 1,000 ML IV SCH ×2 (01:51→11:54)
[2017-07-18 02:00] VITALS: BP 109/58; RESP 18
[2017-07-18] MEDS: KETOROLAC 30 MG INJ IV SCH ×4 (02:16→21:23)
[2017-07-18 05:52] LABS: BASOPHILS % 0.1 % (0.0-2.0); HEMATOCRIT 23.9 % (37.0-47.0); HEMOGLOBIN 7.4 g/dl (12.0-16.0); LYMPHOCYTES # 1.3 10^3/ul (0.8-2.9); LYMPHOCYTES % 9.4 % (15.0-51.0); MEAN CORPUSCULAR HEMOGLOBIN 28.8 pg (29.0-33.0); MEAN PLATELET VOLUME 9.5 fl (7.4-10.4); MONOCYTE # 1.3 10^3/ul (0.3-0.9); NEUTROPHILS % 80.1 % (39.0-77.0); PLATELET COUNT 368 10^3/UL (140-415); RED BLOOD COUNT 2.57 10^6/ul (4.20-5.40); RED CELL DISTRIBUTION WIDTH 14.6 % (11.5-14.5); WHITE BLOOD COUNT 13.3 10^3/ul (4.8-10.8)
[2017-07-18 06:05] LABS: CALCIUM 8.1 mg/dl (8.4-10.2); CREATININE 0.65 mg/dl (0.44-1.00)
[2017-07-18] MEDS: HYDROmorphONE 1 MG/ML SYG IV PRN ×2 (06:18→11:40)
[2017-07-18] MEDS: ENOXAPARIN 40 MG/0.4 ML SYG SC SCH (06:54)
[2017-07-18 08:06] VITALS: BP 106/61; RESP 16
[2017-07-18] MEDS: FAMOTIDINE 20 MG INJ IV SCH ×2 (08:25→21:22)
--- NOTE | 2017-07-18 11:55 | PN ---
Date/Time of Note Date/Time of Note DATE: 07/18/17 TIME: 11:48 Assessment/Plan VTE Prophylaxis VTE Prophylaxis Intervention: LMWH Lines/Catheters IV Catheter Type (from Nrs): Saline Lock Urinary Cath still in place: Yes Reason Cath still needed: urinary retention Assessment/Plan Chief Complaint/Hosp Course Assessment/Plan: 57-year-old female with: 1. Obstructing ascending colon mass, likely malignancy. Postop day #1 hemicolectomy. Having some abdominal pain today, pathology pending. -Follow-up postop recommendations, and path report, pain control -Clear liquid diet, advance per surgery recommendations 2. History of iron deficiency anemia -On IV iron for now, hematology on board as well -For low hemoglobin today (7.4), per surgery team discussion, no need for transfusion at this time 3. History of arthritis -Pain management Problems: Subjective 24 Hr Interval Summary Free Text/Dictation Patient had hemicolectomy surgery yesterday. Still complaining of some incisional abdominal pain. Presently on clear liquid diet. Exam/Review of Systems Vital Signs Vitals Vital Signs Date Time Temp Pulse Resp B/P Pulse Ox O2 Delivery O2 Flow Rate FiO2 07/18/17 08:06 98.5 69 16 106/61 96 07/17/17 15:16 Room Air Intake and Output 07/17/17 07/17/17 07/18/17 14:59 22:59 06:59 Intake Total 2000 ml 110 ml 1334 ml Output Total 2 ml 750 ml 900 ml Balance 1998 ml -640 ml 434 ml Exam Constitutional: alert, oriented, answering questions appropriately Psych: no complaints Head: normocephalic Eyes: nl conjunctiva ENMT: nl external ears & nose Neck: supple Respiratory: clear to auscultation Cardiovascular: regular rate and rhythm Gastrointestinal: Some tenderness to palpation her incision sites, otherwise nondistended Extremities: normal pulses Neurological: ELECTRICAL PROSPECTOR II-XII intact Results Result Diagram: 07/18/17 0433 07/18/17 0433 Results 24 hrs Laboratory Tests Test 07/18/17 04:33 White Blood Count 13.3 #H Red Blood Count 2.57 L Hemoglobin 7.4 L Hematocrit 23.9 L Mean Corpuscular Volume 93.0 Mean Corpuscular Hemoglobin 28.8 L Mean Corpuscular Hemoglobin Concent 31.0 L Red Cell Distribution Width 14.6 H Platelet Count 368 Mean Platelet Volume 9.5 Neutrophils % 80.1 H Lymphocytes % 9.4 L Monocytes % 10.0 Eosinophils % 0.0 Basophils % 0.1 Nucleated Red Blood Cells % 0.0 Neutrophils # (Manual) 10.6 H Lymphocytes # 1.3 Monocytes # 1.3 H Eosinophils # 0.0 Basophils # 0.0 Nucleated Red Blood Cells # 0.0 Sodium Level 138 Potassium Level 4.0 Chloride Level 102 Carbon Dioxide Level 26 Anion Gap 14 Blood Urea Nitrogen 8 Creatinine 0.65 Glucose Level 135 Calcium Level 8.1 L Medications Medications Current Medications Hydromorphone HCl (Dilaudid) 1 mg Q4H PRN IV PAIN Last administered on 11:40; Admin Dose 1 MG; Start 07/16/17 at 05:30 Lidocaine (Xylocaine (Viscous)) 15 ml QID PRN PO PAIN LEVEL 7-10 Last administered on 07/16/17 15:26; Admin Dose 15 ML; Start 07/16/17 at 11:30 Famotidine (Pepcid Iv) 20 mg BID IV Last administered on 07/18/17 08:25; Admin Dose 20 MG; Start 07/16/17 at 12:00 Acetaminophen (Tylenol Tab) 650 mg Q6H PRN PO PAIN AND OR ELEVATED TEMP; Start 07/16/17 at 11:30 Phenol (Chloraseptic Throat [place]) 2 spray Q2H PRN MT SORE THROAT Last administered on 07/17/17 07:38; Admin Dose 2 SPRAY; Start 07/16/17 at 21:30 Morphine Sulfate (morphine) 4 mg Q2H PRN IV PAIN LEVEL 6-10; Start 07/17/17 at 13:00 Oxycodone/ Acetaminophen (Percocet (5/ 325)) 1 tab Q6H PRN PO PAIN LEVEL 6-10; Start 07/17/17 at 13:00 Ketorolac Tromethamine (Toradol) 15 mg Q6H IV Last administered on 07/18/17 08 :26; Admin Dose 15 MG; Start 07/17/17 at 14:00; Stop 07/19/17 at 08:01 Ondansetron HCl 4 mg 4 mg Q6H PRN IV NAUSEA AND/OR VOMITING; Start 07/17/17 at 13:00 Potassium Chloride/Dextrose/ Sod Cl (D5-1/2ns + KCl 20 Meq) 1,000 ml @ 100 mls/ hr Q10H IV Last administered on 07/18/17 01:51; Admin Dose 100 MLS/HR; Start 07/17/17 at 14:00 Enoxaparin Sodium 40 mg 40 mg DAILY@07 SC Last administered on 07/18/17 06:54 ; Admin Dose 40 MG; Start 07/18/17 at 07:00 Ferric Sodium Gluconate Complex/ Sodium Chloride (Ferrlecit/NS) 110 ml @ 100 mls/hr Q24H IVPB Last administered on 07/17/17 21:36; Admin Dose 100 MLS/HR; Start 07/17/17 at 21:00; Stop 07/19/17 at 22:05 RICH VERDE Jul 18, 2017 11:55
--- NOTE | 2017-07-18 13:32 | PN ---
Date/Time of Note Date/Time of Note DATE: 07/18/17 TIME: 13:29 Assessment/Plan VTE Prophylaxis VTE Prophylaxis Intervention: LMWH Lines/Catheters IV Catheter Type (from Nrs): Saline Lock Urinary Cath still in place: Yes Reason Cath still needed: other (indicate) (surgery) Assessment/Plan Assessment/Plan Pt is getting IV iron for the iron deficiency anemia. Pathology is also pending but preliminary results may be ready tomorrow. Hgb is low. If it declines further, RBC transfusion may be needed. Clinically she is stable without chest pain, dyspnea, palpitations, etc. Subjective 24 Hr Interval Summary Free Text/Dictation Pt is s/p right hemicolectomy. C/O post op pain but nothing unusual. Exam/Review of Systems Vital Signs Vitals Vital Signs Date Time Temp Pulse Resp B/P Pulse Ox O2 Delivery O2 Flow Rate FiO2 07/18/17 08:06 98.5 69 16 106/61 96 07/17/17 15:16 Room Air Intake and Output 07/17/17 07/17/17 07/18/17 15:00 23:00 07:00 Intake Total 2000 ml 110 ml 1334 ml Output Total 2 ml 750 ml 900 ml Balance 1998 ml -640 ml 434 ml Exam Constitutional: alert, oriented, other (sitting in chair) Head: normocephalic Eyes: other (pallor) Neck: supple Respiratory: clear to auscultation Cardiovascular: regular rate and rhythm Gastrointestinal: other (abdominal surgery) Skin: nl turgor Results Result Diagram: 07/18/17 0433 07/18/17 0433 Results 24 hrs Laboratory Tests Test 07/18/17 04:33 White Blood Count 13.3 #H Red Blood Count 2.57 L Hemoglobin 7.4 L Hematocrit 23.9 L Mean Corpuscular Volume 93.0 Mean Corpuscular Hemoglobin 28.8 L Mean Corpuscular Hemoglobin Concent 31.0 L Red Cell Distribution Width 14.6 H Platelet Count 368 Mean Platelet Volume 9.5 Neutrophils % 80.1 H Lymphocytes % 9.4 L Monocytes % 10.0 Eosinophils % 0.0 Basophils % 0.1 Nucleated Red Blood Cells % 0.0 Neutrophils # (Manual) 10.6 H Lymphocytes # 1.3 Monocytes # 1.3 H Eosinophils # 0.0 Basophils # 0.0 Nucleated Red Blood Cells # 0.0 Sodium Level 138 Potassium Level 4.0 Chloride Level 102 Carbon Dioxide Level 26 Anion Gap 14 Blood Urea Nitrogen 8 Creatinine 0.65 Glucose Level 135 Calcium Level 8.1 L Medications Medications Current Medications Hydromorphone HCl (Dilaudid) 1 mg Q4H PRN IV PAIN Last administered on 11:40; Admin Dose 1 MG; Start 07/16/17 at 05:30 Lidocaine (Xylocaine (Viscous)) 15 ml QID PRN PO PAIN LEVEL 7-10 Last administered on 07/16/17 15:26; Admin Dose 15 ML; Start 07/16/17 at 11:30 Famotidine (Pepcid Iv) 20 mg BID IV Last administered on 07/18/17 08:25; Admin Dose 20 MG; Start 07/16/17 at 12:00 Acetaminophen (Tylenol Tab) 650 mg Q6H PRN PO PAIN AND OR ELEVATED TEMP; Start 07/16/17 at 11:30 Phenol (Chloraseptic Throat [place]) 2 spray Q2H PRN MT SORE THROAT Last administered on 07/17/17 07:38; Admin Dose 2 SPRAY; Start 07/16/17 at 21:30 Morphine Sulfate (morphine) 4 mg Q2H PRN IV PAIN LEVEL 6-10; Start 07/17/17 at 13:00 Oxycodone/ Acetaminophen (Percocet (5/ 325)) 1 tab Q6H PRN PO PAIN LEVEL 6-10; Start 07/17/17 at 13:00 Ketorolac Tromethamine (Toradol) 15 mg Q6H IV Last administered on 07/18/17 08 :26; Admin Dose 15 MG; Start 07/17/17 at 14:00; Stop 07/19/17 at 08:01 Ondansetron HCl 4 mg 4 mg Q6H PRN IV NAUSEA AND/OR VOMITING; Start 07/17/17 at 13:00 Potassium Chloride/Dextrose/ Sod Cl (D5-1/2ns + KCl 20 Meq) 1,000 ml @ 50 mls/ hr Q20H IV Last administered on 07/18/17 11:54; Admin Dose 50 MLS/HR; Start at 14:00 Enoxaparin Sodium 40 mg 40 mg DAILY@07 SC Last administered on 07/18/17 06:54 ; Admin Dose 40 MG; Start 07/18/17 at 07:00 Ferric Sodium Gluconate Complex/ Sodium Chloride (Ferrlecit/NS) 110 ml @ 100 mls/hr Q24H IVPB Last administered on 07/17/17t 21:36; Admin Dose 100 MLS/HR; Start 07/17/17 at 21:00; Stop 07/19/17 at 22:05 SARKIS YODER MD Jul 18, 2017 13:32
[2017-07-18 14:00] VITALS: BP 109/60; RESP 18
[2017-07-18] MEDS: OXYCODONE/ACETAMINOPHEN (5/325) TAB PO PRN (18:46)
[2017-07-18 19:54] VITALS: BP 106/61; RESP 20
--- NOTE | 2017-07-18 21:10 | PN ---
Date/Time of Note Date/Time of Note DATE: 07/18/17 TIME: 21:08 Assessment/Plan Lines/Catheters IV Catheter Type (from Nrs): Peripheral IV [place] in Place (from Nrs): Yes Assessment/Plan Chief Complaint/Hosp Course Postop day 1 status post right ranjit-colectomy Doing well Advance to soft diet tomorrow Hematology oncology consultation tomorrowfor possible further treatment based on pathology Problems: Subjective 24 Hr Interval Summary Constitutional: improved, no complaints, other Feeding: clear Pain Control: well controlled Additional Comments Reports flatus today Exam/Review of Systems Vital Signs Vitals Vital Signs Date Time Temp Pulse Resp B/P Pulse Ox O2 Delivery O2 Flow Rate FiO2 07/18/17 19:54 99.1 78 20 106/61 97 07/17/17 15:16 Room Air Intake and Output 07/17/17 07/17/17 07/18/17 15:00 23:00 07:00 Intake Total 2000 ml 110 ml 1334 ml Output Total 2 ml 750 ml 900 ml Balance 1998 ml -640 ml 434 ml Exam Constitutional: alert, oriented, well developed Respiratory: clear to auscultation Cardiovascular: regular rate and rhythm Gastrointestinal: non-tender, soft Additional Comments Wound clean dry and intact Results Result Diagram: 07/18/17 0433 07/18/17 0433 SAHIL MCQUEEN MD Jul 18, 2017 21:10
[2017-07-18] MEDS: SOD FERRIC GLUC COMPLX 125 MG in SOD CHLORIDE 0.9% 100 ML IVPB SCH (21:24)
[2017-07-19 02:00] VITALS: BP 109/66; RESP 20
[2017-07-19] MEDS: KETOROLAC 30 MG INJ IV SCH ×2 (03:49→09:08)
[2017-07-19] MEDS: D5W-0.45 NACL + KCL 20 MEQ 1,000 ML IV SCH (04:09)
[2017-07-19 06:20] LABS: BASOPHILS % 0.1 % (0.0-2.0); EOSINOPHILS # 0.1 10^3/ul (0.0-0.5); EOSINOPHILS % 1.3 % (0.0-7.0); HEMOGLOBIN 7.4 g/dl (12.0-16.0); LYMPHOCYTES # 1.3 10^3/ul (0.8-2.9); LYMPHOCYTES % 16.5 % (15.0-51.0); MEAN CORPUSCULAR HGB CONC 30.8 g/dl (32.0-37.0); MEAN CORPUSCULAR VOLUME 94.1 fl (82.0-101.0); MEAN PLATELET VOLUME 9.5 fl (7.4-10.4); MONOCYTE # 0.8 10^3/ul (0.3-0.9); MONOCYTES % 10.4 % (0.0-11.0); NEUTROPHILS % 71.4 % (39.0-77.0); PLATELET COUNT 351 10^3/UL (140-415); RED BLOOD COUNT 2.55 10^6/ul (4.20-5.40); RED CELL DISTRIBUTION WIDTH 14.5 % (11.5-14.5); WHITE BLOOD COUNT 7.9 10^3/ul (4.8-10.8)
[2017-07-19] MEDS: ENOXAPARIN 40 MG/0.4 ML SYG SC SCH (06:48)
[2017-07-19 06:51] LABS: CALCIUM 8.1 mg/dl (8.4-10.2); CREATININE 0.73 mg/dl (0.44-1.00); POTASSIUM 3.7 mmol/L (3.5-5.1)
[2017-07-19 07:43] VITALS: BP 102/55; RESP 16
[2017-07-19] MEDS: FAMOTIDINE 20 MG INJ IV SCH ×2 (09:08→20:33)
--- NOTE | 2017-07-19 09:46 | PN ---
Date/Time of Note Date/Time of Note DATE: 07/19/17 TIME: 09:44 Assessment/Plan Lines/Catheters IV Catheter Type (from [facility]): Saline Lock [place] in Place (from [facility]): Yes Assessment/Plan Chief Complaint/Hosp Course Postop day 2status post right ranjit-colectomy Doing well Tolerating soft diet Awaiting final pathology Heme oncology consultation Problems: Subjective 24 Hr Interval Summary Constitutional: flatus, no complaints Feeding: advancing diet Additional Comments Has flatus but no bowel movement was yet Tolerating soft diet well Exam/Review of Systems Vital Signs Vitals Vital Signs Date Time Temp Pulse Resp B/P Pulse Ox O2 Delivery O2 Flow Rate FiO2 07/19/17 07:43 99.1 71 16 102/55 97 07/17/17 15:16 Room Air Intake and Output 07/18/17 07/18/17 07/19/17 15:00 23:00 07:00 Intake Total 816 ml 110 ml 250 ml Balance 816 ml 110 ml 250 ml Exam Constitutional: alert, oriented, well developed Respiratory: clear to auscultation Cardiovascular: regular rate and rhythm Gastrointestinal: non-tender (Wound clean dry and intact), soft Results Result Diagram: 07/19/17 0542 07/19/17 0542 SAHIL MCQUEEN MD Jul 19, 2017 09:45
--- NOTE | 2017-07-19 10:28 | PN ---
DATE: 07/19/2017 SUBJECTIVE DATA: Patient states that she is feeling well. Has minimal abdominal discomfort. Is tolerating her diet. Is passing flatus and has had bowel movements. OBJECTIVE DATA: GENERAL: Patient is a well-developed, well-nourished female, in no acute distress. VITAL SIGNS: Temperature 99.1 orally, pulse 71 and regular, respirations 16, blood pressure 102/55, and pulse oximetry 97 percent on room air. SKIN: No ecchymoses, no petechiae or rashes. Patient is pale. HEENT: Normocephalic. No evidence of trauma. Pupils equal, round, react to light and accommodation. Sclerae nonicteric. Oral mucosa and conjunctivae are pale, but there are no mucosal lesions. NECK: Supple. No jugular distention or thyroid enlargement. CHEST: Chest is clear to auscultation, percussion. No rhonchi, wheezes, rales, or rubs. NODES: No palpable lymphadenopathy in any lymph node bearing area. ABDOMEN: Mildly distended, but soft. There is evidence of the recent laparoscopic procedure. Bowel sounds are present. EXTREMITIES: Good range of motion. No clubbing, edema, or cyanosis. No palpable cords or Homans sign. NEUROLOGIC: Normal. LABORATORY AND DIAGNOSTIC DATA: White count today is 7900 with an absolute neutrophil count of 5600, hemoglobin 7.4, hematocrit 24, and platelet count is 351,000. Sodium 14-, potassium 3.7, creatinine 0.73, and BUN 8. ASSESSMENT: 1. 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 Pathology still pending. 2. Status post resection of neoplasm of the ascending colon. 3. Iron-deficiency anemia. DISCUSSION: As noted, the pathology is still pending. Hopefully will be available later this afternoon. The patient has now received 2/3 infusions of ferric sodium gluconate. She has received 250 mg of elemental iron thus far. As noted, the patient's pathology report is not available. Hopefully will be available later this afternoon. If not, will not be available until July 23. By that time, the patient will have been discharged from the hospital. We will discuss results with her as an outpatient. Dictated By: Adrian Robertson MD /shanta/andrae /Document#: [id number]
--- NOTE | 2017-07-19 12:06 | PN ---
Date/Time of Note Date/Time of Note DATE: 07/19/17 TIME: 12:04 Assessment/Plan VTE Prophylaxis VTE Prophylaxis Intervention: LMWH Lines/Catheters IV Catheter Type (from Nrs): Saline Lock Urinary Cath still in place: Yes Reason Cath still needed: urinary retention Assessment/Plan Chief Complaint/Hosp Course Assessment/Plan: 57-year-old female with: 1. Obstructing ascending colon mass, likely malignancy, simply adenocarcinoma? postop day #2 hemicolectomy. Having less abdominal pain today, official pathology pending. -Follow-up postop recommendations, and path report, pain control - advance per surgery recommendations 2. History of iron deficiency anemia -On IV iron for now, hematology on board as well -For low hemoglobin today (7.4), per surgery team discussion yesterday, no need for transfusion at this time 3. History of arthritis -Pain management Problems: Subjective 24 Hr Interval Summary Free Text/Dictation Patient seen by surgery and hematology oncology teams. Tolerating diet presently, less abdominal pain symptoms overall. Exam/Review of Systems Vital Signs Vitals Vital Signs Date Time Temp Pulse Resp B/P Pulse Ox O2 Delivery O2 Flow Rate FiO2 07/19/17 07:43 99.1 71 16 102/55 97 07/17/17 15:16 Room Air Intake and Output 07/18/17 07/18/17 07/19/17 15:00 23:00 07:00 Intake Total 816 ml 110 ml 250 ml Balance 816 ml 110 ml 250 ml Exam Constitutional: alert, oriented, answering questions appropriately Psych: no complaints Head: normocephalic Eyes: nl conjunctiva ENMT: nl external ears & nose Neck: supple Respiratory: clear to auscultation Cardiovascular: regular rate and rhythm Gastrointestinal: Some tenderness to palpation her incision sites, otherwise nondistended Extremities: normal pulses Neurological: COPY ROOM TECHNICIAN II-XII intact Results Result Diagram: 07/19/17 0542 07/19/17 0542 Results 24 hrs Laboratory Tests Test 07/19/17 05:42 White Blood Count 7.9 # Red Blood Count 2.55 L Hemoglobin 7.4 L Hematocrit 24.0 L Mean Corpuscular Volume 94.1 Mean Corpuscular Hemoglobin 29.0 Mean Corpuscular Hemoglobin Concent 30.8 L Red Cell Distribution Width 14.5 Platelet Count 351 Mean Platelet Volume 9.5 Neutrophils % 71.4 Lymphocytes % 16.5 Monocytes % 10.4 Eosinophils % 1.3 Basophils % 0.1 Nucleated Red Blood Cells % 0.0 Neutrophils # (Manual) 5.6 Lymphocytes # 1.3 Monocytes # 0.8 Eosinophils # 0.1 Basophils # 0.0 Nucleated Red Blood Cells # 0.0 Sodium Level 140 Potassium Level 3.7 Chloride Level 109 Carbon Dioxide Level 28 Anion Gap 7 L Blood Urea Nitrogen 8 Creatinine 0.73 Glucose Level 89 # Calcium Level 8.1 L Medications Medications Current Medications Hydromorphone HCl (Dilaudid) 1 mg Q4H PRN IV PAIN Last administered on 11:40; Admin Dose 1 MG; Start 07/16/17 at 05:30 Lidocaine (Xylocaine (Viscous)) 15 ml QID PRN PO PAIN LEVEL 7-10 Last administered on 07/16/17 15:26; Admin Dose 15 ML; Start 07/16/17 at 11:30 Famotidine (Pepcid Iv) 20 mg BID IV Last administered on 07/19/17 09:08; Admin Dose 20 MG; Start 07/16/17 at 12:00 Acetaminophen (Tylenol Tab) 650 mg Q6H PRN PO PAIN AND OR ELEVATED TEMP; Start 07/16/17 at 11:30 Phenol (Chloraseptic Throat [place]) 2 spray Q2H PRN MT SORE THROAT Last administered on 07/17/17 07:38; Admin Dose 2 SPRAY; Start 07/16/17 at 21:30 Morphine Sulfate (morphine) 4 mg Q2H PRN IV PAIN LEVEL 6-10 Last administered on 07/18/17 15:31; Admin Dose 4 MG; Start 07/17/17 at 13:00 Oxycodone/ Acetaminophen (Percocet (5/ 325)) 1 tab Q6H PRN PO PAIN LEVEL 6-10 Last administered on 07/18/17 18:46; Admin Dose 1 TAB; Start 07/17/17 at 13:00 Ondansetron HCl 4 mg 4 mg Q6H PRN IV NAUSEA AND/OR VOMITING; Start 07/17/17 at 13:00 Potassium Chloride/Dextrose/ Sod Cl (D5-1/2ns + KCl 20 Meq) 1,000 ml @ 50 mls/ hr Q20H IV Last administered on 07/18/17 11:54; Admin Dose 50 MLS/HR; Start at 14:00 Enoxaparin Sodium 40 mg 40 mg DAILY@07 SC Last administered on 07/19/17 06:48; Admin Dose 40 MG; Start 07/18/17 at 07:00 Ferric Sodium Gluconate Complex/ Sodium Chloride (Ferrlecit/NS) 110 ml @ 100 mls/hr Q24H IVPB Last administered on 07/18/17 21:24; Admin Dose 100 MLS/HR; Start 07/17/17 at 21:00; Stop 07/19/17 at 22:05 RIHC VERDE Jul 19, 2017 12:06
[2017-07-19] MEDS: OXYCODONE/ACETAMINOPHEN (5/325) TAB PO PRN ×2 (13:40→21:47)
[2017-07-19 14:00] VITALS: BP 116/64; RESP 16
[2017-07-19] MEDS ORDERED: morphine 4 MG/ML VIAL IV PRN (15:00)
[2017-07-19] MEDS: morphine 2 MG INJ IV PRN (18:49)
[2017-07-19 19:38] VITALS: BP 107/64; RESP 70
[2017-07-19] MEDS: SOD FERRIC GLUC COMPLX 125 MG in SOD CHLORIDE 0.9% 100 ML IVPB SCH (20:34)
[2017-07-20] MEDS: D5W-0.45 NACL + KCL 20 MEQ 1,000 ML IV SCH (00:09)
[2017-07-20] MEDS: morphine 2 MG INJ IV PRN (00:43)
[2017-07-20 01:45] VITALS: BP 100/57; RESP 20
[2017-07-20 06:04] LABS: BASOPHILS % 0.1 % (0.0-2.0); EOSINOPHILS # 0.2 10^3/ul (0.0-0.5); EOSINOPHILS % 3.1 % (0.0-7.0); HEMATOCRIT 23.5 % (37.0-47.0); HEMOGLOBIN 7.3 g/dl (12.0-16.0); LYMPHOCYTES # 1.8 10^3/ul (0.8-2.9); LYMPHOCYTES % 23.9 % (15.0-51.0); MEAN CORPUSCULAR HEMOGLOBIN 28.9 pg (29.0-33.0); MEAN CORPUSCULAR HGB CONC 31.1 g/dl (32.0-37.0); MEAN CORPUSCULAR VOLUME 92.9 fl (82.0-101.0); MEAN PLATELET VOLUME 9.5 fl (7.4-10.4); MONOCYTE # 0.8 10^3/ul (0.3-0.9); MONOCYTES % 10.5 % (0.0-11.0); NEUTROPHILS % 62.1 % (39.0-77.0); PLATELET COUNT 356 10^3/UL (140-415); RED BLOOD COUNT 2.53 10^6/ul (4.20-5.40); WHITE BLOOD COUNT 7.3 10^3/ul (4.8-10.8)
[2017-07-20] MEDS: ENOXAPARIN 40 MG/0.4 ML SYG SC SCH (06:20)
[2017-07-20 06:30] LABS: CALCIUM 7.9 mg/dl (8.4-10.2); CREATININE 0.75 mg/dl (0.44-1.00); POTASSIUM 3.8 mmol/L (3.5-5.1)
[2017-07-20 08:13] VITALS: BP 105/62; RESP 18
[2017-07-20] MEDS: FAMOTIDINE 20 MG INJ IV SCH (09:28)
[2017-07-20] MEDS: OXYCODONE/ACETAMINOPHEN (5/325) TAB PO PRN (09:28)
--- NOTE | 2017-07-20 12:20 | PDOCDIS ---
Discharge Instructions CONDITION Patient Condition: Stable HOME CARE INSTRUCTIONS: Diet Instructions: Regular ACTIVITY: Activity Restrictions: Slowly Increase Activity FOLLOW UP/APPOINTMENTS Follow-up Plan Please follow-up with her hematology oncology doctor in the clinic in the next few days to get the results of your biopsy. Please take your medications as prescribed. RICH VERDE Jul 20, 2017 12:20
--- NOTE | 2017-07-20 12:58 | DS ---
DATE OF ADMISSION: 07/15/2017 DATE OF DISCHARGE: 07/20/2017 HOSPITAL COURSE: This is a 57-year-old female. The patient came in initially with abdominal pain. She was found on imaging studies with an obstructing ascending colon mass, likely a malignancy, so she was admitted to [facility], seen by hematology oncology team as well as general surgery team. She underwent hemicolectomy and the biopsy was taken and the results were sent to pathology. She also had some iron-deficiency anemia and was given IV iron as well. Afterwards, she had some abdominal pain symptoms but was controlled pain control medications. She was able to ambulate and tolerate a p.o. diet. There is a strong suspicion of possible malignancy. So, patient will need a followup with both general surgery team and hematology oncology team in the next 2-3 days to get the results of the biopsy and possibly start chemotherapy if it is confirmed for malignancy. In the mean time, her vital signs have been stable. As stated, she is ambulating, tolerating a p.o. diet and she will be discharged home today in improved condition. She will go home with the following medications: DISCHARGE MEDICATIONS: 1. Ferrous sulfate 325 mg p.o. b.i.d. 2. Vitamin D3 at 1000 units daily. 3. Calcium carbonate 1 tab daily. 4. [place] 5/325 one tab, p.o. q.6 p.r.n. 5. Motrin 800 mg q.6 p.r.n. 6. Zofran 4 mg p.o. q.6 p.r.n. 7. Pyridium 200 mg t.i.d. p.r.n. 8. Flomax 0.4 mg p.o. q.p.m. FINAL DIAGNOSES: 1. Abdominal pain secondary to obstructing ascending colon mass, likely malignancy status post hemicolectomy, awaiting final pathology results. 2. Iron-deficiency anemia status post intravenous iron. 3. History of arthritis. TIME SPENT ON DISCHARGE: 45 minutes. Dictated By: Ulysses Roldan MD /shanta/josé manuel /Document#: [id number]
[2017-07-20 14:32] VITALS: BP 92/55; RESP 18
[2017-07-20 15:45] VITALS: BP 105/62; PULSE 65; RESP 16
== END 2017-07-20 16:05 | disposition home or self-care (01) | DRG 331 ==
LOC: FTE 15:19 → MS2 22:44
PROVIDERS: ADMIT Internal Medicine; ATTEND Internal Medicine
PROC: 0DTK0ZZ Resection of Ascending Colon, Open Approach (ICD-10-PCS; principal; 2017-07-15)
PROC: 0DBL0ZZ Excision of Transverse Colon, Open Approach (ICD-10-PCS; 2017-07-15)
DX: C18.2 Malignant neoplasm of ascending colon (principal); D50.9 Iron deficiency anemia, unspecified; R59.1 Generalized enlarged lymph nodes; Z78.0 Asymptomatic menopausal state
CPT/HCPCS: 36415; 71010; 74176; 80048; 80053; 80061; 81001; 82270; 82378; 82728; 83036; 83540; 83690; 85025; 87086; 88309; 97116; J0690; J1100; J1170; J1644; J1650; J1885; J2250; J2270; J2405; J2795; J2916; J3010; J3480; J7030; J7042; J7999

== ENCOUNTER 2017-11-27 08:47 | Day surgery (SDC) | END 2017-11-27 11:06 | disposition home or self-care (01) ==

== ENCOUNTER 2019-03-12 05:28 | Inpatient (IN) | payer OTHER ==
[2019-03-10 10:28] VITALS: BMI 22.7
[2019-03-12] VITALS (27 sets, daily range): BP systolic 89–137; BP diastolic 50–71; PULSE 54–99; RESP 14–18; Ht 157.5 cm; Wt 55.5 kg
[~2019-03-12] VITALS: Ht 157.5 cm; Wt 55.5 kg
[~2019-03-12 05:28] MED LIST changes: +CEFAZOLIN 2 GM/50 ML (PMX) 50 ML IVPB ONE; -CEPH-443 PO; -CIPR500T4 PO; +GABA250S2 PO; +HYDR-4011 PO; -HYDR-902 PO; -HYDR-906 PO; -IBUP-1542 PO; -IBUP800T25 PO; +IBUP800T48 PO; -MELO-110 PO; +MELO7.5T38 PO; -NITR-58 PO; +chemotherapy
[2019-03-12] MEDS ORDERED: CEFAZOLIN 2 GM/50 ML (PMX) 50 ML IVPB ONE (06:00)
--- NOTE | 2019-03-12 06:03 | HPN ---
Date/Time of Note Date/Time of Note DATE: 03/12/19 TIME: 06:03 Interval H&P Admission Note Pt. seen H&P reviewed: No system changes REBEL YUAN MD Mar 12, 2019 06:03
--- NOTE | 2019-03-12 06:05 | OPR ---
Date/Time of Note Date/Time of Note DATE: 03/12/19 TIME: 06:03 Operative Report Procedure Date: Mar 12, 2019 Preoperative Diagnosis Left hip primary arthritis Postoperative Diagnosis Left hip primary arthritis Operation/Procedure Performed 1. Left total hip arthroplasty 2. Left hip injection of PRP solution Surgeon see signature line Loom Overhauler Chadwick Montilla DO Anesthesia Type: general Estimated Blood Loss: 150 - 200 ml's Transfusion none Specimen None Grafts/Implants See op note Complications none Pt Condition Post Procedure: stable Disposition: PACU Procedure Description SALES MARKETING SURGEON: Chadwick Montilla DO was asked to be present at my request as a result of the complexity associated with this procedure including positioning of the extremity, positioning of the instrumentation and protection of the neurovascular structures. In my opinion, the assistance offered by a surgical tech is insufficient and he should be compensated for his time. PROCEDURE IN DETAIL: Following the administration of general endotracheal anesthesia supplemented with a spinal anesthetic, the patient was placed in the supine position. The antecubital fossa on the left was prepped and 60 cc of blood were aspirated. Under sterile conditions, the blood was passed off to the guest service representative from the company who prepared the PRP solution. The left lower extremity was then prepped and draped in the usual sterile fashion. A creative writing teacher radiograph was obtained for preliminary limb length and femoral size as well as acetabular size. A lateral incision was then made exposing the tensor fascia the fascia was incised the tensor was retracted laterally and the vessels were cauterized. Severe scarring was noted from the prior surgical procedure that included an arthroscopic labral repair and capsulorrhaphy. Very significant scar tissue was encountered in the approach. This was then excised and mobilized in order to expose the anterior capsule. The anterior capsule was then identified and prepared for an incision. A capsulotomy was then performed and the femoral head was then evaluated. Severe arthritic changes were noted. In addition, multiple sutures were removed from the prior labral repair. A femoral head cut was then made in the appropriate degree of version and inclination. Following dislocation, severe arthritic changes were noted with very extensive than severe cystic changes in the femoral head. The acetabulum was then exposed and a capsulectomy and labrectomy were completed. Very severe peripheral osteophytes. The central portion was then entered and serially reamed up to the 49 mm size. A Depuy [place] cup which was 50 mm, with a standard liner was then fit into position with solid fixation. Attention was then directed to the femur, the femur was exposed and prepared. The canal was entered and serially reamed up to the size 6. The femoral canal was then thoroughly irrigated and the PRP solution was then instilled into the femoral canal. A size 6 Depuy Actis stem was then inserted with solid fixation. A 32 mm, +1.5 mm femoral head, which was ceramic was then inserted. The leg was taken through full range of motion with no evident instability. In addition, radiographs revealed excellent position with reproduction of the limb lengths within a millimeter. The wound was irrigated thoroughly. The wound was then closed in layers and a Prenio for the final cover. This was watertight. Estimated blood loss was procedure was 200 cc. Postoperative radiographs will be obtained in the recovery room. REBEL YUAN MD Mar 12, 2019 06:05
[2019-03-12] MEDS ORDERED: SOD CHLORIDE 0.9% 100 ML, TRANEXAMIC ACID 3,000 MG IRR ONE ×2 (06:30)
[2019-03-12] MEDS ORDERED: BUPIVACAINE 0.5% (SDV) 30 ML, morphine SULFATE (PF) 8 MG, EPINEPHrine 0.3 MG, KETOROLAC... IRR SCH ×7 (06:30)
[2019-03-12] MEDS ORDERED: TRANEXAMIC ACID 1GM/100ML(PMX) 100 ML IVPB ONE (06:30)
[2019-03-12] MEDS ORDERED: LACTATED RINGER'S 1,000 ML IV SCH (06:30)
[2019-03-12] MEDS ORDERED: GABAPENTIN 300 MG CAP PO ONE (06:30)
[2019-03-12] MEDS ORDERED: DEXAMETHASONE 1 MG TAB PO ONE (06:30)
[2019-03-12] MEDS ORDERED: ACET500T98 PO (06:34)
[2019-03-12] MEDS ORDERED: POLYMYXIN/BACITRACIN 1L IRRIG ONE (06:44)
[2019-03-12] MEDS ORDERED: THROMBIN (BOVINE) 5,000 UNIT VIAL TP ONE (06:44)
[2019-03-12] MEDS ORDERED: CA CHLORIDE (GM) 10% 10 ML INJ ONE (06:44)
--- NOTE | 2019-03-12 06:57 | PREAC ---
Date/Time of Note Date/Time of Note DATE: 03/12/19 TIME: 06:56 Anesthesia Eval and Record Evaluation Time Pre-Procedure Interview DATE: 03/12/19 TIME: 06:56 Age 58 Sex female NPO: 8 hrs Preoperative diagnosis Lt hip arthritis Planned procedure Lt hip replacement Past Medical History Past Medical History: None Surgery & Anesthesia Issues No known issue Meds Anticoagulation: No Beta Cameron within 24 hr: No Reason Beta Cameron not given: Pt. not on B-Cameron Active Scripts Hydrocodone/Acetaminophen ([place] 5-325 Tablet) 1 Each Tablet, 1 TAB PO Q6H PRN for PAIN, #7 TAB Prov:HAN NIETO DO 07/09/17 Phenazopyridine Hcl* (Pyridium*) 200 Mg Tab, 200 MG PO TID PRN for URINARY PAIN, #6 TAB Prov:ARNOL PANG PA-C 05/30/17 Ibuprofen* (Motrin*) 800 Mg Tab, 800 MG PO Q6H PRN for PAIN AND OR ELEVATED TEMP, #30 TAB Prov:BALJINDER ACKERMAN MD 05/16/17 Ondansetron (Ondansetron Odt) 4 Mg Tab.rapdis, 4 MG PO Q6H PRN for NAUSEA AND/OR VOMITING, #10 TAB Prov:BALJINDER ACKERMAN MD 05/16/17 Tamsulosin Hcl* (Flomax*) 0.4 Mg Cap.er.24h, 0.4 MG PO QPM, #14 CAP Prov:BALJINDER ACKERMAN MD 05/16/17 Reported Medications Acetaminophen (Tylenol) 500 Mg Tab, 500 MG PO Q8 PRN for PAIN LEVEL 6-10, TAB 03/12/19 [chemotherapy] No Conflict Check 11/27/17 Meloxicam* (Meloxicam*) 7.5 Mg Tablet, 15 MG PO DAILY, #30 TAB 11/27/17 Gabapentin* (Gabapentin* Liq) 250 Mg/5 Ml Solution, 50 MG PO TID, ML 11/27/17 Cholecalciferol* (Vitamin D3*) 1,000 Unit Tablet, 1000 UNIT PO DAILY, TAB 05/16/17 Calcium Carbonate* ([place]-500*) 1 Tab Tablet, 1 TAB PO DAILY, TAB 04/18/16 Ferrous Sulfate (Iron) 325 Mg Capsr, 325 MG PO DAILY 04/18/16 Current Medications Tranexamic Acid 100 ml @ 200 mls/hr Pre-op ONCE IVPB ; Start 03/12/19 at 06:30; Stop 03/12/19 at 06:59 Bupivacaine HCl/ Morphine Sulfate/ Epinephrine/ Ketorolac Tromethamine/ Clonidine/Sodium Chloride/ Vancomycin HCl INTRA-OP IRR ; Start 03/12/19 at 06:30; Stop 03/12/19 at 16:00 Lactated Ringer's 1,000 ml @ 30 mls/hr Q24H IV Last administered on 03/12/19at 06:34; Admin Dose 30 MLS/HR; Start 03/12/19 at 06:30 Meds reviewed: Yes Allergies Coded Allergies: No Known Allergies (Verified Allergy, Unknown, 03/12/19) Allergies Reviewed: Yes Labs/Studies Labs Reviewed: Reviewed by anesthesiologist test: N/A Pre-procedure Exam Last vitals Vital Signs Date Temp Pulse Resp B/P (MAP) Pulse Ox O2 O2 Flow FiO2 Time Delivery Rate 03/12/19 98.2 99 16 137/68 97 Room Air 06:23 (91) Airway: Adequate mouth opening, Adequate thyromental dist Mallampati: Mallampati II Teeth: Normal Lung: Normal Heart: Normal ASA Physical Status ASA physical status: 3 Emergency: None Planned Anesthetic General/MAC: LMA Planned Pain Management Sub-arachniod narcotics, Parenteral pain med Pre-operative Attestations Prior to commencing anesthesia and surgery, the patient was re-evaluated, there was verification of: *The patient's identity *The results of appropriate recent lab work and preoperative vital signs *The above evaluation not changing prior to induction *Anesthetic plan, risk benefits, alternative and complications discussed with patient/family; questions answered; patient/family understands, accepts and wishes to proceed. MINESH JOSEPH MD Mar 12, 2019 06:57
[2019-03-12] MEDS ORDERED: MIDAZOLAM 1 MG/ML 2 ML INJ ONE (07:02)
[2019-03-12] MEDS ORDERED: morphine SULFATE/PF (10 MG/10 ML) INJ ONE (07:02)
[2019-03-12] MEDS ORDERED: TRANEXAMIC ACID 1GM/100ML(PMX) 200 ML ONE (07:34)
[2019-03-12] MEDS ORDERED: ROCURONIUM 50 MG INJ ONE (08:53)
[2019-03-12] MEDS ORDERED: LIDOCAINE 2% (SDV) 5 ML INJ ONE (08:53)
[2019-03-12] MEDS ORDERED: ETOMIDATE 20 MG INJ ONE (08:53)
[2019-03-12] MEDS ORDERED: CEFAZOLIN 1 GM INJ ONE (08:54)
[2019-03-12] MEDS ORDERED: ONDANSETRON 4 MG INJ ONE (08:54)
--- NOTE | 2019-03-12 09:07 | PAC ---
Date/Time of Note Date/Time of Note DATE: 03/12/19 TIME: 09:07 Post-Anesthesia Notes Post-Anesthesia Note Last documented vital signs Vital Signs Date Temp Pulse Resp B/P (MAP) Pulse Ox O2 O2 Flow FiO2 Time Delivery Rate 03/12/19 98.2 99 16 137/68 97 Room Air 06:23 (91) Activity: WNL Respiratory function: WNL Cardiovascular function: WNL Mental status: Baseline Pain reasonably controlled: Yes Hydration appropriate: Yes Nausea/Vomiting absent: Yes Comments BP:118/64, P:78, Spo2:100%, T:98,8 MINESH JOSEPH MD Mar 12, 2019 09:07
--- NOTE | 2019-03-12 09:11 | PDOCDIS ---
Discharge Instructions DIAGNOSIS Discharge Diagnosis Hip Arthritis CONDITION [id number] Patient Condition: [id number] Good HOME CARE INSTRUCTIONS: [id number] Diet Instructions: [id number] Regular ACTIVITY: [id number] Activity Restrictions: [id number] Rest between Activity Keep Limb Elevated [id number] Bathing Restrictions: [id number] Shower FOLLOW UP/APPOINTMENTS Follow-up Plan two weeks in the office SCHOOL/WORK RELEASE May return to School/Work with: With Restrictions School/Work Release Comment: No hip extension for six weeks REBEL YUAN MD Mar 12, 2019 09:11
[2019-03-12] MEDS ORDERED: DIPHENHYDRAMINE 50 MG INJ IV PRN ×2 (09:30)
[2019-03-12] MEDS ORDERED: oxyCODONE 5 MG TAB PO PRN ×2 (09:30)
[2019-03-12] MEDS ORDERED: MEPERIDINE 25 MG INJ IV PRN (09:30)
[2019-03-12] MEDS ORDERED: NACL 0.9% 3 ML SYG IV SCH (09:30)
[2019-03-12] MEDS ORDERED: FENTAnyl 50 MCG/ML VIAL IV PRN (09:30)
[2019-03-12] MEDS ORDERED: MAGNESIUM HYDROXIDE 30ML CUP PO PRN (09:30)
[2019-03-12] MEDS ORDERED: METOCLOPRAMIDE 10 MG INJ IV PRN (09:30)
[2019-03-12] MEDS ORDERED: HYDROmorphONE 1 MG/5 ML IV SYRINGE IV PRN ×2 (09:30)
[2019-03-12] MEDS ORDERED: ZOLPIDEM 5 MG TAB PO PRN (09:30)
[2019-03-12] MEDS ORDERED: ONDANSETRON 4 MG INJ IV PRN ×2 (09:30)
[2019-03-12] MEDS ORDERED: HYDROmorphONE 1 MG/ML SYG IV PRN (09:30)
[2019-03-12] MEDS: ACETAMINOPHEN 1000MG/100ML IV 100 ML IVPB SCH ×2 (10:04→18:11)
[2019-03-12] MEDS: LACTATED RINGER'S 1,000 ML IV SCH ×2 (11:19→14:30)
[2019-03-12] MEDS: DEXAMETHASONE 2 MG TAB PO SCH ×2 (14:29→18:11)
[2019-03-12] MEDS: CEFAZOLIN 1 GM/50 ML (PMX) 50 ML IVPB SCH ×2 (14:29→21:30)
[2019-03-12] MEDS ORDERED: GABAPENTIN 300 MG CAP PO SCH (21:00)
[2019-03-12] MEDS: oxyCODONE 5 MG TAB PO PRN (21:28)
[2019-03-12] MEDS: SENNA/DOCUSATE NA (8.6MG/50MG) TAB PO SCH (21:28)
[2019-03-13] MEDS: DEXAMETHASONE 2 MG TAB PO SCH ×2 (00:37→06:12)
[2019-03-13] MEDS: ACETAMINOPHEN 1000MG/100ML IV 100 ML IVPB SCH (00:42)
[2019-03-13] MEDS: LACTATED RINGER'S 1,000 ML IV SCH (00:51)
[2019-03-13 05:01] VITALS: BP 96/55; PULSE 66; RESP 18
--- NOTE | 2019-03-13 05:38 | PN ---
Date/Time of Note Date/Time of Note DATE: 03/13/19 TIME: 05:37 Subjective Awake and alert, with no complaints Objective Vitals Vital Signs Date Temp Pulse Resp B/P (MAP) Pulse Ox O2 O2 Flow FiO2 Time Delivery Rate 03/13/19 97.7 66 18 96/55 (69) 98 05:01 03/12/19 Room Air 14:38 Intake and Output 03/12/19 03/12/19 03/13/19 1515:00 23:00 07:00 IntakeIntake Total 2440 ml 640 ml 650 ml OutputOutput Total 600 ml 500 ml 1900 ml BalanceBalance 1840 ml 140 ml -1250 ml Wound clean and dry. NV intact. No signs DVT. Results Result Diagram: 03/13/19 0430 Medications Medications Current Medications Lactated Ringer's 1,000 ml @ 100 mls/hr Q10H IV Last administered on 03/13/19at 00:51; Admin Dose 100 MLS/HR; Start 03/12/19 at 09:01 Cefazolin Sodium 50 ml @ 100 mls/hr Q8H IVPB Last administered on 03/12/19at 21:30; Admin Dose 100 MLS/HR; Start 03/12/19 at 14:00; Stop 03/13/19 at 06:29 Senna/Docusate Sodium (Senokot-S) 1 tab BID PO Last administered on 03/12/19at 21:28; Admin Dose 1 TAB; Start 03/12/19 at 21:00 Simethicone (Mylicon) 80 mg TID PRN PO .GAS; Start 03/12/19 at 09:30 Magnesium Hydroxide (Milk Of Mag) 30 ml BID PRN PO .CONSTIPATION; Start 03/12/19 at 09:30 Magnesium Hydroxide (Milk Of Mag) 30 ml HS PO ; Start 03/14/19 at 21:00 Dexamethasone (Decadron) 2 mg Q6 PO Last administered on 03/13/19at 00:37; Admin Dose 2 MG; Start 03/12/19 at 12:00; Stop 03/13/19 at 06:01 Gabapentin (Neurontin) 300 mg HS PO Last administered on 03/12/19at 21:28; Admin Dose 300 MG; Start 03/12/19 at 21:00 Oxycodone HCl (Roxicodone) 15 mg Q4H PRN PO .PAIN; Start 03/12/19 at 09:30 Oxycodone HCl (Roxicodone) 10 mg Q4H PRN PO .PAIN Last administered on 03/12/19at 21:28; Admin Dose 10 MG; Start 03/12/19 at 09:30 Oxycodone HCl (Roxicodone) 5 mg Q4H PRN PO .PAIN; Start 03/12/19 at 09:30 Hydromorphone HCl (Dilaudid) 1 mg Q4H PRN IV .BREAKTHROUGH PAIN; Start 03/12/19 at 09:30 Ondansetron HCl (Zofran Inj) 4 mg Q6H PRN IV NAUSEA/VOMITING; Start 03/12/19 at 09:30 Diphenhydramine HCl (Benadryl) 25 mg Q6H PRN IV .PRURITUS; Start 03/12/19 at 09:30 Zolpidem Tartrate (Ambien) 10 mg HS PRN PO .INSOMNIA; Start 03/12/19 at 09:30 IV Flush (NS 3 ml) 3 ml per protocol IV ; Start 03/12/19 at 09:30 Aspirin (Ecotrin) 325 mg DAILY PO ; Start 03/13/19 at 09:00 VTE Prophylaxis Risk score (from Nsg)>0 risk: 5 SCD applied (from Nsg): Yes Lines/Catheters IV Catheter Type: Saline Lock [place] in Place: No Assessment/Plan Assessment/Plan A: S/p THR P: She will mobilize this am and go home after cleared. REBEL YUAN MD Mar 13, 2019 05:38
--- NOTE | 2019-03-13 05:39 | DS ---
Date/Time of Note Date/Time of Note DATE: 03/13/19 TIME: 05:38 Discharge Summary Admission/Discharge Info Admit Date/Time Mar 12, 2019 at 05:28 Discharge Date/Time 03/13/19 Discharge Diagnosis Hip Arthritis Patient Condition: Good Hospital Course Admitted and underwent uncomplicated procedure. Discharged home after ambulation in PT Home Meds Reported Medications Acetaminophen (Tylenol) 500 Mg Tab, 500 MG PO Q8 PRN for PAIN LEVEL 6-10, TAB 03/12/19 Meloxicam* (Meloxicam*) 7.5 Mg Tablet, 15 MG PO DAILY, #30 TAB 11/27/17 Cholecalciferol* (Vitamin D3*) 1,000 Unit Tablet, 1000 UNIT PO DAILY, TAB 05/16/17 Ferrous Sulfate (Iron) 325 Mg Capsr, 325 MG PO DAILY 04/18/16 Discontinued Reported Medications [chemotherapy] No Conflict Check 11/27/17 Gabapentin* (Gabapentin* Liq) 250 Mg/5 Ml Solution, 50 MG PO TID, ML 11/27/17 Calcium Carbonate* ([place]-500*) 1 Tab Tablet, 1 TAB PO DAILY, TAB 04/18/16 Discontinued Scripts Hydrocodone/Acetaminophen ([place] 5-325 Tablet) 1 Each Tablet, 1 TAB PO Q6H PRN for PAIN, #7 TAB Prov:HAN NIETO DO 07/09/17 Phenazopyridine Hcl* (Pyridium*) 200 Mg Tab, 200 MG PO TID PRN for URINARY PAIN, #6 TAB Prov:ARNOL PANG PA-C 05/30/17 Ibuprofen* (Motrin*) 800 Mg Tab, 800 MG PO Q6H PRN for PAIN AND OR ELEVATED TEMP, #30 TAB Prov:BALJINDER ACKERMAN MD 05/16/17 Ondansetron (Ondansetron Odt) 4 Mg Tab.rapdis, 4 MG PO Q6H PRN for NAUSEA AND/OR VOMITING, #10 TAB Prov:BALJINDER ACKERMAN MD 05/16/17 Tamsulosin Hcl* (Flomax*) 0.4 Mg Cap.er.24h, 0.4 MG PO QPM, #14 CAP Prov:BALJINDER ACKERMAN MD 05/16/17 Follow-up Plan two weeks in the office Primary Care Provider Arabella Rader Pending Labs Laboratory Tests Test 03/12/19 09:12 03/13/19 04:30 White Blood Count 10.2 10^3/ul (4.8-10.8) 10.2 10^3/ul (4.8-10.8) Red Blood Count 3.48 10^6/ul (4.20-5.40) 3.25 10^6/ul (4.20-5.40) Hemoglobin 10.9 g/dl (12.0-16.0) 10.1 g/dl (12.0-16.0) Hematocrit 32.6 % (37.0-47.0) 30.4 % (37.0-47.0) Mean Corpuscular Volume 93.7 fl (82.0-101.0) 93.5 fl (82.0-101.0) Mean Corpuscular 31.3 pg (29.0-33.0) 31.1 pg (29.0-33.0) Hemoglobin Mean Corpuscular 33.4 g/dl (32.0-37.0) 33.2 g/dl (32.0-37.0) Hemoglobin Concent Red Cell Distribution 13.0 % (11.5-14.5) 13.2 % (11.5-14.5) Width Platelet Count 186 10^3/UL (140-415) 194 10^3/UL (140-415) Mean Platelet Volume 10.8 fl (7.4-10.4) 10.8 fl (7.4-10.4) Immature Granulocytes % 1.200 % (0.001-0.429) 0.400 % (0.001-0.429) Neutrophils % 78.8 % (39.0-77.0) 83.0 % (39.0-77.0) Lymphocytes % 16.2 % (15.0-51.0) 7.2 % (15.0-51.0) Monocytes % 3.4 % (0.0-11.0) 9.4 % (0.0-11.0) Eosinophils % 0.2 % (0.0-7.0) 0.0 % (0.0-7.0) Basophils % 0.2 % (0.0-2.0) 0.0 % (0.0-2.0) Nucleated Red Blood Cells 0.0 /100WBC (0.0-0.0) 0.0 /100WBC (0.0-0.0) % Immature Granulocytes # 0.120 10^3/ul (0.0-0.031) 0.040 10^3/ul (0.0-0.031) Neutrophils # 8.1 10^3/ul (1.6-7.5) 8.5 10^3/ul (1.6-7.5) Lymphocytes # 1.7 10^3/ul (0.8-2.9) 0.7 10^3/ul (0.8-2.9) Monocytes # 0.4 10^3/ul (0.3-0.9) 1.0 10^3/ul (0.3-0.9) Eosinophils # 0.0 10^3/ul (0.0-0.5) 0.0 10^3/ul (0.0-0.5) Basophils # 0.0 10^3/ul (0.0-0.1) 0.0 10^3/ul (0.0-0.1) Nucleated Red Blood Cells 0.0 10^3/ul (0.0-0.0) 0.0 10^3/ul (0.0-0.0) REBEL BEDOYA MD Mar 13, 2019 05:39
[2019-03-13] MEDS: CEFAZOLIN 1 GM/50 ML (PMX) 50 ML IVPB SCH (06:13)
[2019-03-13] MEDS: oxyCODONE 5 MG TAB PO PRN ×2 (06:21→13:18)
[2019-03-13 07:40] VITALS: BP 99/57; PULSE 64; RESP 18
[2019-03-13] MEDS: SENNA/DOCUSATE NA (8.6MG/50MG) TAB PO SCH (08:27)
[2019-03-13] MEDS ORDERED: ASPIRIN (EC) 325 MG TAB PO SCH (09:00)
[2019-03-13 14:12] VITALS: BP 94/52; PULSE 73; RESP 18
[2019-03-14] MEDS ORDERED: MAGNESIUM HYDROXIDE 30ML CUP PO SCH (21:00)
== END 2019-03-13 15:30 | disposition home or self-care (01) | DRG 470 ==
LOC: REC 05:28 → MS1 11:21
PROVIDERS: ADMIT Orthopaedic Surgery; ATTEND Orthopaedic Surgery
PROC: 0SR904A Replacement of Right Hip Joint with Ceramic on Polyethylene Synthetic Substitute, Uncemented, Open Approach (ICD-10-PCS; principal; 2019-03-12 07:00)
DX: M16.12 Unilateral primary osteoarthritis, left hip (principal)
CPT/HCPCS: 72170; 73530; 85025; 86999; 87086; 88304; 88311; 97161; C1776; J0131; J0171; J0690; J0735; J1885; J2250; J2274; J2405; J3010; J3370; J7120

== ENCOUNTER 2019-07-01 11:14 | Emergency (ER) | payer OTHER ==
[~2019-07-01] VITALS: Ht 157.5 cm; Wt 58.5 kg
[~2019-07-01 11:14] MED LIST changes: +ACET500T98 PO; -CALC500T12 PO; -CEFAZOLIN 2 GM/50 ML (PMX) 50 ML IVPB ONE; -GABA250S2 PO; -HYDR-4011 PO; -IBUP800T48 PO; -ONDA4TAB14 PO; -PHEN-538 PO; -TAMS-14 PO; -chemotherapy
[2019-07-01 11:16] VITALS: Ht 157.5 cm; Wt 58.5 kg
--- NOTE | 2019-07-01 12:20 | ERD ---
ER Documentation Chief Complaint Chief Complaint left foot pain/injury HPI 59-year-old female presents with left foot pain. She states that 3 weeks ago she hit her foot against the corner of a bed. She got the pain would get better but it has not yet improved so she came for evaluation. She is ambulatory. No numbness or tingling. She takes meloxicam at home which does help. ROS All systems reviewed and are negative except as per history of present illness. Medications Home Meds Reported Medications Acetaminophen (Tylenol) 500 Mg Tab, 500 MG PO Q8 PRN for PAIN LEVEL 6-10, TAB 03/12/19 Meloxicam* (Meloxicam*) 7.5 Mg Tablet, 15 MG PO DAILY, #30 TAB 11/27/17 Cholecalciferol* (Vitamin D3*) 1,000 Unit Tablet, 1000 UNIT PO DAILY, TAB 05/16/17 Ferrous Sulfate (Iron) 325 Mg Capsr, 325 MG PO DAILY 04/18/16 Allergies Allergies: Coded Allergies: No Known Allergies (Verified Allergy, Unknown, 07/01/19) PMhx/Soc History of Surgery: Yes (colon ca 2016; c section 1990; appendectomy 1968) Anesthesia Reaction: No Hx Neurological Disorder: No Hx Respiratory Disorders: No Hx Cardiac Disorders: No Hx Psychiatric Problems: No Hx Miscellaneous Medical Probl: Yes (LT HIP EMANI , OA ) Hx Alcohol Use: No Hx Substance Use: No Hx Tobacco Use: No Smoking Status: Never smoker FmHx Family History: No diabetes Physical Exam Vitals Vital Signs Date Temp Pulse Resp B/P (MAP) Pulse Ox O2 O2 Flow FiO2 Time Delivery Rate 07/01/19 98.8 70 20 122/73 97 11:16 (89) Physical Exam Const: No acute distress Head: Atraumatic Eyes: Normal Conjunctiva ENT: Normal External Ears, Nose and Mouth. Neck: Full range of motion. No meningismus. Resp: Clear to auscultation bilaterally Cardio: Regular rate and rhythm, no murmurs Lower Extremity -left Skin: No laceration Compartments: Soft Motor: Full active range of motion hip/knee/ankle/foot Sensation: Intact to light touch FDWS/MF/LF/P surfaces. Bones: Nontender pelvis/knee/proximal tibia/ malleoli/foot Joints: No effusion or laxity Pulses/Perfusion: 2+ DP, Capillary refill < 2 seconds Procedures/MDM Patient has foot pain after trauma that occurred 3 weeks ago. She is ambulatory and neurovascular intact. Her x-rays are negative. She was given copy of the report so she can follow-up with primary care. Patient counseled regarding my diagnostic impression and care plan. Prior to discharge all questions answered. Pt agrees with treatment plan and understands strict return precautions. Pt is instructed to follow up with primary care provider within 24-48 hours. Precautionary instructions provided including instructions to return to the ER if not improving or for any worsening or changing symptoms or concerns. Departure Diagnosis: Primary Impression: Foot pain Condition: Stable Patient Instructions: Sprain Foot Additional Instructions: Llame al doctor MAANA y sue kyra ANTHONY PARA DENTRO DE 1-2 PATEL.Dgale a la secretaria que nosotros le instruimos hacer esta anthony.Avise o llame si villatoro condicin se empeora antes de la anthony. Regresa aqui si peor o no mejor. YULIYA MARTI PA-C Jul 01, 2019 12:19
[2019-07-01 12:22] VITALS: BP 118/70; PULSE 67; RESP 20
== END 2019-07-01 12:21 | disposition home or self-care (01) ==
LOC: FTE 11:14
DX: M79.672 Pain in left foot (principal); Z85.038 Personal history of other malignant neoplasm of large intestine
CPT/HCPCS: 73630; Z7502